=== PATIENT | female | born 1950 | race Caucasian/White ===

== ENCOUNTER → 2022-05-08 | Day surgery (SDC) | payer MEDICARE, OTHER ==
--- NOTE | 2022-05-14 08:45 | MM ---
Reason for Exam: Review of outside study. Risk Values: Kitty 5 year model risk: 1.1%. NCI Lifetime model risk: 3.5%. Tissue Density: Right: The breast tissue is heterogeneously dense. This may lower the sensitivity of mammography. Pathology Description: Location: 7 o'clock. Needle Type: Celero Cores: 2 Gauge: 12 The procedure of ultrasound guided core biopsy was explained to the patient. Benefits, alternatives, and risks were discussed. An informed consent was then obtained. The patient was placed in supine positioning for imaging and for the procedure. The overlying skin was prepped and draped in usual sterile fashion. Lidocaine was used as anesthetic into the skin followed by lidocaine/epinephrine into the subcutaneous tissue up to each area within the right breast interpreted. A total of 5 mL 1% lidocaine was utilized and a total of 20 mL lidocaine/epinephrine mixture. SITE A, dominant 7:00, 8.7 cm mass: Under ultrasound guidance, a 12-gauge vacuum assisted biopsy gun device was used to obtain 2 core samples. Following this, a Hydromark coil clip was left in lesion. SITE B, dominant 7.7 cm SUPERIOR axillary mass: Under ultrasound guidance, a 12- gauge vacuum assisted biopsy gun device was used to obtain 2 core samples. Following this, a Hydromark coil clip was left in lesion. SITE C, 4.6 cm INFERIOR axillary mass: Under ultrasound guidance, a 12-gauge vacuum assisted biopsy gun device was used to obtain 2 core samples. Following this, a Hydromark butterfly clip was left in lesion. The patient tolerated the procedure well without any immediate complication. The patient was kept in the radiology department for short stay after the procedure and then discharged home in stable condition. Postprocedure mammogram: The patient was transferred to mammography for physician ordered post procedure mammogram for clip placement verification. Post procedure mammogram shows the dominant central posteriorly located mass labeled 7:00 on ultrasound with coil clip. The 2 axillary masses are outside the field of view. Impression: Successful, uncomplicated (3 site) ultrasound guided core biopsy of the large BI-RADS 5, 7:00 right breast mass and suspicious two masses in the axilla; full pathology results to follow. Pathology Results: Result: Malignant, Invasive ductal carcinoma. A. RIGHT BREAST, SEVEN O'CLOCK, ULTRASOUND GUIDED NEEDLE CORE BIOPSY: Invasive poorly differentiated ductal carcinoma (Grade 3). See Surgical Pathology Cancer Case Summary and Comment. B. RIGHT BREAST AXILLA, ULTRASOUND GUIDED NEEDLE CORE BIOPSY: Invasive poorly differentiated ductal carcinoma (Grade 3). See Surgical Pathology Cancer Case Summary and Comment. C. RIGHT BREAST AXILLA, ULTRASOUND GUIDED NEEDLE CORE BIOPSY: Invasive poorly differentiated ductal carcinoma (Grade 3). See Surgical Pathology Cancer Case Summary and Comment. Overall Assessment: Malignant Assessment: MG diagnostic mammo RT wo CAD - Right: Known biopsy proven malignancy, BI-RAD 6. Management: Surgical Consultation of the right breast. Electronically signed and approved by: Tiffani Stovall M.D. Radiologist [facility]
== END ==
LOC: RADUSWWP 13:08
PROVIDERS: ATTEND Surgery
DX: R92.8 Other abnormal and inconclusive findings on diagnostic imaging of breast (principal); C50.311 Malignant neoplasm of lower-inner quadrant of right female breast
CPT/HCPCS: 88305; 88342; 88341; 77065; 19083; 19084; A4648

== ENCOUNTER → 2022-05-16 | Outpatient (CLI) | payer MEDICARE, OTHER ==
[2022-05-16 14:05] VITALS: BP 195/84; PULSE 100; RESP 18; TEMP 98.8
--- NOTE | 2022-05-16 14:45 | P.GSHP ---
History of Present Illness H&P Date: 05/16/22 Chief Complaint: Invasive ductal carcinoma right breast Tania is a 71-year-old white female seen in consultation for Carmen Morataya regarding a biopsy-proven right breast invasive ductal carcinoma. The patient underwent a bilateral mammogram on 192 which revealed a large focal asymmetry in the right breast inferior laterally with associated skin thickening. No lesions of concern were noted in the left breast. An ultrasound was then performed which revealed edema in the skin of the right breast as well as a solid mass at 7:00 measuring 8.7 cm x 8.4 cm. 2 enlarged axillary masses were seen one measuring 7.7 x 8 cm and the second measuring 4.6 x 3.9 cm. A biopsy of all 3 sites were performed in all 3 sites revealed invasive ductal carcinoma. The core biopsy was performed on . Additionally the lesion was noted to be grade 3 ER. Negative as well as HER-2 negative. The patient noted some redness under her right breast which she though were shingles. She was seen by MD and a mammogram was done which led to this appointment. She now states that the right breast is firm and red. She was treated with amoxicillin for 10 days. This did not result in resolution of this situation. She's never had surgery on her breasts before. She got complaining of any recent trauma or infection in the breast. She did have some chills but no fever. Caffeine: none nicotine: none chocolate: weekly BCP: none Family History: mother: breast cancer at 46 at 54 from cancer father: prostate cancer paternal aunt: breast cancer Hormonal History: menarche: 14 , age at : 29, breast fed: no menopause: 56 hormones: none Surgical history: left knee replacement Medical History: HTN Social History: nicotine: none alcohol: none drugs: none - Constitutional Constitutional: Denies chills, Denies fever - EENT Eyes: denies blurred vision, denies pain Ears: deny: decreased hearing, tinnitus Ears, nose, mouth and throat: Denies headache, Denies sore throat - Breasts Breasts: bilateral: as per HPI - Cardiovascular Cardiovascular: Denies chest pain, Denies shortness of breath - Respiratory Respiratory: Denies cough, Denies 7 - Gastrointestinal Gastrointestinal: Denies abdominal pain, Denies diarrhea, Denies nausea, Denies vomiting - Genitourinary (Female) Genitourinary: Denies dysuria, Denies hematuria - Menstruation Menstruation: Reports postmenopausal - Musculoskeletal Comment: arthritis in her hands, knees Musculoskeletal: Denies myalgias - Integumentary Integumentary: Reports as per HPI - Neurological Neurological: Denies numbness, Denies weakness - Psychiatric Psychiatric: Denies anxiety, Denies depression - Endocrine Endocrine: Denies fatigue, Denies weight change - Hematologic/Lymphatic Comment: none - Allergic/Immunologic Allergic/Immunologic: Reports as per HPI Past Medical History Past Medical History: Hypertension History of Any Multi-Drug Resistant Organisms: None Reported Additional Past Surgical History / Comment(s): Left knee replacement Additional Past Anesthesia/Blood Transfusion Reaction / Comment(s): never have had general anesthesia Past Psychological History: No Psychological Hx Reported Smoking Status: Never smoker Past Alcohol Use History: None Reported Past Drug Use History: None Reported Medications and Allergies Home Medications Medication Instructions Recorded Confirmed Type lisinopriL [Prinivil] 20 mg PO DAILY 04/25/22 05/16/22 History Ascorbic Acid [Vitamin C] 1,000 mg PO DAILY 05/16/22 05/16/22 History Calcium Carbonate [Calcium] 600 mg PO DAILY 05/16/22 05/16/22 History Multivitamin [Multivitamins Adult 1 cap PO DAILY 05/16/22 05/16/22 History Gummies] Allergies Allergy/AdvReac Type Severity Reaction Status Date / Time No Known Allergies Allergy Unverified 05/16/22 13:59 Surgical - Exam Vital Signs Temp Pulse Resp BP Pulse Ox 98.8 F 100 18 195/84 97 05/16/22 14:01 05/16/22 14:01 05/16/22 14:01 05/16/22 14:01 05/16/22 14:01 - General BMI: 46.5 no distress - Eyes normal ocular movement - ENT no hearing loss - Neck trachea midline - Respiratory normal respiratory effort, clear to auscultation - Cardiovascular Rhythm: regular Heart Sounds: normal: S1, S2 - Abdomen Abdomen: soft, non tender, no guarding, no rigid, no rebound - Integumentary thickening of skin right breast - Neurologic no disoriented, no combative - Musculoskeletal normal gait - Psychiatric oriented to time, oriented to place, memory intact Breast Exam: 3X right larger than left side Inspection: Erythema of the lower outer aspect of the right breast with extension up into the axilla, thickening of the skin and right breast is larger than the left breast Palpation: Right breast: Approximately 20 cm mass outer upper and lower quadrants which appeared to be separate from approximately 8 cm mass in the axilla these are not fixed to the chest wall Right axilla colon approximately 8 cm mass not fixed to the chest wall extending up into the axilla Left breast: Multiple positional exam fibrocystic changes no dominant masses or nodules of concern Left axilla: No adenopathy of concern Results Mammogram and ultrasound personally reviewed Assessment and Plan Assessment: Impression: HTN grade 3 tipple (-), invasive ductal cancer right breast Plan: Appointment medical oncology Appointment radiation oncology Presentation of case at tumor board PET scan Cc: Carmen Rogers
== END | disposition home or self-care (01) ==
LOC: WWCWWP 13:53
PROVIDERS: ATTEND Surgery
DX: I10 Essential (primary) hypertension (principal); C50.911 Malignant neoplasm of unspecified site of right female breast; Z79.899 Other long term (current) drug therapy

== ENCOUNTER → 2022-06-27 | Day surgery (SDC) | payer MEDICARE, OTHER ==
[2022-06-27 12:19] VITALS: TEMP 98.7
[2022-06-27 14:24] VITALS: BP 168/93; PULSE 94; RESP 18
--- NOTE | 2022-06-27 14:25 | P.HPOB ---
History of Present Illness H&P Date: 06/27/22 Chief Complaint: Abnormal hypermetabolic uptake in the central uterus by PET scan This is a 72-year-old with an LMP of 2006. The patient's last pelvic exam with Pap smear was done more than 20 years ago. The patient was sent for an endometrial biopsy following abnormal PET scan findings. She had an abnormal mammogram on 04/23/2022 which showed a large right breast mass which was suspicious. Breast biopsy revealed right breast cancer. PET scan was performed which showed the large breast mass and an abnormal hypermetabolic uptake in the central uterus which was concerning for endometrial cancer or other neoplasm within the uterus. The patient is without gynecologic complaints and denies any postmenopausal bleeding. The patient is seen Dr. Hossein Clement for the breast cancer and has seen Dr. Rubin Barclay for the possibility of gynecologic malignancy. Dr. Barclay has requested for me to do an endometrial biopsy because of the abnormal PET scan finding. Review of Systems The patient's weight has been stable over the last year. She denies respiratory, cardiac, or G.I. problems. Past Medical History Past Medical History: Cancer, Hypertension, Osteoarthritis (OA), Skin Disorder Additional Past Medical History / Comment(s): new dx. right breast cancer, drsg. over area where biopsy was done-has been draining-Dr. Catalan-Urbano evaluated. 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 Inadequate cervical screening. History of Any Multi-Drug Resistant Organisms: None Reported Past Surgical History: Breast Surgery, Joint Replacement, Orthopedic Surgery Additional Past Surgical History / Comment(s): arthroscopy left knee, Left knee replacement, bx to right breast Past Anesthesia/Blood Transfusion Reactions: No Reported Reaction Additional Past Anesthesia/Blood Transfusion Reaction / Comment(s): never have had general anesthesia Past Psychological History: No Psychological Hx Reported (She denies current depression.) Smoking Status: Never smoker Past Alcohol Use History: None Reported Past Drug Use History: None Reported Additional History: She has been since 1979. - Past Family History Mother Family Medical History: Cancer Additional Family Medical History / Comment(s): breast Father Family Medical History: Cancer Additional Family Medical History / Comment(s): Metastatic Prostate cancer. Medications and Allergies Home Medications Medication Instructions Recorded Confirmed Type lisinopriL [Prinivil] 40 mg PO DAILY 04/25/22 06/27/22 History Ascorbic Acid [Vitamin C] 1,000 mg PO DAILY 05/16/22 06/27/22 History Calcium Carbonate [Calcium] 600 mg PO DAILY 05/16/22 06/27/22 History Multivitamin [Multivitamins Adult 1 cap PO DAILY 05/16/22 06/27/22 History Gummies] Mv-Mn/Om3/Dha/Epa/Fish/Lut/Mil 1 tab PO DAILY 06/21/22 06/27/22 History [Ocuvite Adult 50 Plus Softgel] Allergies Allergy/AdvReac Type Severity Reaction Status Date / Time No Known Allergies Allergy Verified 06/27/22 12:15 Exam Vital Signs Temp Pulse Resp BP Pulse Ox 06/27/22 12:16 98.7 F 92 17 167/85 98 Intake and Output 06/26/22 06/27/22 06/27/22 22:59 06:59 14:59 Other: Weight 136.078 kg Height 5 feet 7 inches, weight 300 pounds, BMI 47.0. This is a well-developed well-nourished pleasant obese white female who is alert and oriented times 3 in no acute distress. Physical examination was limited as she was sent specifically for the endometrial biopsy procedure. ABDOMEN: Soft, obese, nontender, without palpable masses. PELVIC EXAM: Normal external genitalia with mild atrophy. Cervix revealed an endocervical mass measuring approximately 1 x 1 cm that was at the opening of the cervix. The mass had a meat like color that was darker than the surrounding mucosa. The cervix appeared 1 cm dilated with the mass at the opening. The rest of the cervix appeared normal without lesions. The vagina was normal appearance with mild atrophy. There is no unusual discharge or blood at the initial inspection. There is no evidence of prolapse. The uterus is midpositi on, multiparous, nongravid size and nontender. There are no palpable adnexal masses or tenderness. Bimanual examination is somewhat limited secondary to her size. Endometrial biopsy was attempted, but the endometrial biopsy instrument could not be placed beyond the cervical mass and this attempt was aborted. Biopsy of the mass was performed with a cervical biopsy instrument. See procedure note for additional details. IMPRESSION: 1. 72-year-old menopausal female with recent diagnosis of right breast cancer with PET scan showing abnormal hypermetabolic uptake in the central uterus without postmenopausal bleeding. 2. Endocervical mass measuring approximately 1 x 1 cm. Differential diagnosis will include benign endocervical polypoid mass, pedunculated prolapsed endometrial tissue, pedunculated uterine fibroid, pedunculated endometrial polyp, or metastatic neoplasm of the uterus. Malignant or benign neoplasm will both be considered. This may or may not represent findings associated with the abnormal uptake in the uterus on PET scan. PLAN: 1. Pap smear cotest was performed. 2. Await pathology from the cervical mass biopsy. 3. The patient was instructed to call if she has problems such as heavy bleeding, unusual pain, fever, or other problems. She was instructed to limit activity to simple walking and she is to avoid putting anything into the vagina. 4. If the biopsy of the mass does not explain the unusual uptake on PET scan, further workup may be needed such as D&C.
--- NOTE | 2022-06-27 14:36 | P.PCN ---
Date of Procedure: 06/27/22 Preoperative Diagnosis: Abnormal hypermetabolic uptake in the central uterus on PET scan. Postoperative Diagnosis: Same plus endocervical mass of uncertain behavior. Procedure(s) Performed: Attempted endometrial biopsy (aborted) and biopsy of endocervical mass. Anesthesia: none Surgeon: Rufino Padilla Estimated Blood Loss (ml): 2 Pathology: other (Endocervical biopsy) Condition: stable Disposition: same day Indications for Procedure: This was a 80-year-old menopausal female who was recently diagnosed with right breast cancer. PET scan was done on 05/18/2022 which showed an abnormal hypermetabolic uptake in the central uterus. I have been asked to do an endometrial biopsy because of this PET scan finding. She denies postmenopausal bleeding. See the history and physical for additional details. Operative Findings: The uterus was mid positioned, multiparous, nongravid size without palpable adnexal masses or or tenderness. Bimanual examination was limited because of her size. The cervix revealed an endocervical mass measuring impression a 1 x 1 cm that approached the cervical opening. The mass had a meat like color which was darker than the surrounding cervical tissue and vaginal mucosa. Description of Procedure: The procedure was explained to the patient. Possible risks and complications were discussed. All questions were answered. The patient was placed in the lithotomy position. Bimanual examination was performed. The uterus was multiparous nongravid size and nontender. There are no palpable adnexal masses or tenderness. Bimanual examination was somewhat limited secondary to her size. A speculum was inserted into the vagina. Pap smear cotest was performed. The cervix and vagina were prepped with Betadine solution. The anterior lip of the cervix was grasped with an Allis clamp. A 3 mm endometrial biopsy instrument was used and I was unable to pass the instrument beyond the endocervical mass. The Allis clamp was used to grasp in various areas of the cervix, but I was unable to pass the endometrial biopsy instrument beyond the outer part of the cervix. I attempted to pass the instrument at every point around the mass without success. After several attempts the endometrial biopsy procedure was aborted as to avoid using excessive pressure which could lead to perforation. The the endocervical mass was then biopsied with a cervical biopsy instrument. There was some bleeding from the biopsy site which was made hemostatic with Monsel solution. The patient tolerated the procedure and endometrial biopsy attempt well. The post procedure blood pressure was 168/93, pulse 94 and the pulse oximeter 99%. The patient was instructed to call if she has unusual pain, fever, heavy bleeding, or any other problems. Please see the history and physical for additional details on the impression and plan.
== END ==
LOC: WWCWWP 11:38
PROVIDERS: ATTEND Obstetrics & Gynecology
DX: Z53.8 Procedure and treatment not carried out for other reasons (principal); N84.1 Polyp of cervix uteri; I10 Essential (primary) hypertension; M19.90 Unspecified osteoarthritis, unspecified site; Z78.0 Asymptomatic menopausal state; Z85.3 Personal history of malignant neoplasm of breast; Z96.652 Presence of left artificial knee joint; Z79.899 Other long term (current) drug therapy
CPT/HCPCS: 88305

== ENCOUNTER → 2022-08-23 | Outpatient (CLI) | payer MEDICARE, OTHER ==
[2022-08-23 15:49] VITALS: BP 169/78; PULSE 90; RESP 18; TEMP 98.3
--- NOTE | 2022-08-23 16:05 | P.PN ---
Subjective Progress Note Date: 08/23/22 History of Present Illness H&P Date: 05/16/22 Chief Complaint: Invasive ductal carcinoma right breast; [id number] Stage IIIC Tania is a 71-year-old white female seen in consultation for Carmen Morataya regarding a biopsy-proven right breast invasive ductal carcinoma. The patient underwent a bilateral mammogram on 1922 which revealed a large focal asymmetry in the right breast inferior laterally with associated skin t hickening. No lesions of concern were noted in the left breast. An ultrasound was then performed which revealed edema in the skin of the right breast as well as a solid mass at 7:00 measuring 8.7 cm x 8.4 cm. 2 enlarged axillary masses were seen one measuring 7.7 x 8 cm and the second measuring 4.6 x 3.9 cm. A biopsy of all 3 sites were performed in all 3 sites revealed invasive ductal carcinoma. The core biopsy was performed on 120 423. Additionally the lesion was noted to be grade 3 ER. Negative as well as HER-2 negative. The patient noted some redness under her right breast which she though were shingles. She was seen by MD and a mammogram was done which led to this appointment. She now states that the right breast is firm and red. She was treated with amoxicillin for 10 days. This did not result in resolution of this situation. She's never had surgery on her breasts before. She got complaining of any recent trauma or infection in the breast. She did have some chills but no fever. PET scan 3 abnormal right axillary adenopathy, no right breast mass, abnormal hypermetabolic uptake in the central uterus which was worrisome for primary endometrial cancer The patient was seen by Dr. Barclay and has had some workup by Dr. Padilla. At this point in time we feel that the breast lesion should be treated prior to the uterine lesion She is receiving neoadjuvant chemotherapy under the care of Dr. Douglas Ortez; she has about 4 more months of treatment prior to condiseration for surgery; she is receiving good response to this. She did [place] [id number] and has been treated with our course Note form Dr. Ortez 08-15-22 reviewed Caffeine: none nicotine: none chocolate: weekly BCP: none Family History: mother: breast cancer at 46 at 54 from cancer father: prostate cancer paternal aunt: breast cancer Hormonal History: menarche: 14 , age at : 29, breast fed: no menopause: 56 hormones: none Surgical history: left knee replacement Medical History: HTN Social History: nicotine: none alcohol: none drugs: none - Constitutional Constitutional: Denies chills, Denies fever - EENT Eyes: denies blurred vision, denies pain Ears: deny: decreased hearing, tinnitus Ears, nose, mouth and throat: Denies headache, Denies sore throat - Breasts Breasts: bilateral: as per HPI - Cardiovascular Cardiovascular: Denies chest pain, Denies shortness of breath - Respiratory Respiratory: Denies cough - Gastrointestinal Gastrointestinal: Denies abdominal pain, Denies diarrhea, Denies nausea, Denies vomiting - Genitourinary (Female) Genitourinary: Denies dysuria, Denies hematuria - Menstruation Menstruation: Reports postmenopausal - Musculoskeletal Comment: arthritis in her hands, knees Musculoskeletal: Denies myalgias - Integumentary Integumentary: Reports as per HPI - Neurological Neurological: Denies numbness, Denies weakness - Psychiatric Psychiatric: Denies anxiety, Denies depression - Endocrine Endocrine: Denies fatigue, Denies weight change - Hematologic/Lymphatic Comment: none - Allergic/Immunologic Allergic/Immunologic: Reports as per HPI Past Medical History Past Medical History: Hypertension History of Any Multi-Drug Resistant Organisms: None Reported Additional Past Surgical History / Comment(s): Left knee replacement Additional Past Anesthesia/Blood Transfusion Reaction / Comment(s): never have had general anesthesia Past Psychological History: No Psychological Hx Reported Smoking Status: Never smoker Past Alcohol Use History: None Reported Past Drug Use History: None Reported Medications and Allergies Home Medications Medication Instructions Recorded Confirmed Type lisinopriL [Prinivil] 20 mg PO DAILY 04/25/22 05/16/22 History Ascorbic Acid [Vitamin C] 1,000 mg PO DAILY 05/16/22 05/16/22 History Calcium Carbonate [Calcium] 600 mg PO DAILY 05/16/22 05/16/22 History Multivitamin [Multivitamins Adult 1 cap PO DAILY 05/16/22 05/16/22 History Gummies] Allergies Allergy/AdvReac Type Severity Reaction Status Date / Time No Known Allergies Allergy Unverified 05/16/22 13:59 Objective - Vital Signs Vital signs: Vital Signs Temp 98.3 F 08/23/22 15:45 Pulse 90 08/23/22 15:45 Resp 18 08/23/22 15:45 BP 169/78 08/23/22 15:45 Pulse Ox 100 08/23/22 15:45 FiO2 Intake & Output 08/22/22 08/23/22 08/23/22 18:59 06:59 18:59 Weight 137.892 kg - Constitutional General appearance: Present: cooperative - EENT Eyes: Present: EOMI ENT: Present: hearing grossly normal - Neck Neck: Present: normal ROM - Respiratory Respiratory: bilateral: CTA - Cardiovascular Rhythm: regular Heart sounds: normal: S1, S2 - Gastrointestinal General gastrointestinal: Present: soft - Integumentary Integumentary: Present: normal turgor - Musculoskeletal Musculoskeletal: Present: gait normal - Psychiatric Psychiatric: Present: A&O x's 3, appropriate affect, intact judgment & insight - Additional findings Additional findings: Breast Exam: 3X right larger than left side Inspection: Erythema of the lower outer aspect of the right breast with extension up into the axilla, markedly improved, there remains some thickening of the skin but this is improved as well Palpation: Right breast: Approximately 20 cm mass outer upper and lower quadrants which appeared to be separate from approximately 8 cm mass in the axilla these are not fixed to the chest wall; these masses the 20 cm mass May centimeter mass have largely resolved Right axilla: The area of concern in the right axilla has largely resolvedof the adenopathy of concern is appreciated on today's exam Left breast: Multiple positional exam fibrocystic changes no dominant masses or nodules of concern Left axilla: No adenopathy of concern Assessment and Plan Assessment: Impression: Invasive ductal carcinoma right breast; [id number] Stage IIIC Patient responding well to neoadjuvant chemotherapy Plan: Follow appearing 2 months Continue neoadjuvant chemotherapy Cc: Dr. Morataya
== END ==
LOC: WWCWWP 14:57
PROVIDERS: ATTEND Surgery
DX: D05.11 Intraductal carcinoma in situ of right breast (principal); I10 Essential (primary) hypertension; Z79.899 Other long term (current) drug therapy; Z80.3 Family history of malignant neoplasm of breast

== ENCOUNTER → 2022-08-28 | Day surgery (SDC) | payer MEDICARE, OTHER ==
[2022-08-27 15:02] VITALS: BMI 48.2
[~2022-08-28] MED LIST: IOPAMIDOL-370 100ML BTL INJ ONE
[2022-08-28 08:10] VITALS: PULSE 86; RESP 18; TEMP 98.2
[2022-08-28 08:26] VITALS: BP 174/60
--- NOTE | 2022-08-28 09:55 | IR ---
Fluoroscopic portogram([facility]). HISTORY: Device malfunction. The patient presented to the [facility] with a Cobb needle within the port. Preliminary fluoroscopy demonst rated the catheter to be intact. Normal exam. 0.4 minutes of fluoroscopy utilized. IMPRESSION: 1. No obstruction or extravasation. See above.
== END ==
LOC: CATHCVL 07:38
PROVIDERS: ATTEND Radiology Diagnostic Radiology
DX: T85.618A Breakdown (mechanical) of other specified internal prosthetic devices, implants and grafts, initial encounter (principal); Y82.8 Other medical devices associated with adverse incidents; C50.511 Malignant neoplasm of lower-outer quadrant of right female breast; I10 Essential (primary) hypertension; Z79.01 Long term (current) use of anticoagulants; Z79.899 Other long term (current) drug therapy
CPT/HCPCS: 36598; J1642; Q9967

== ENCOUNTER 2023-01-08 11:46 | Day surgery (SDC) | payer MEDICARE, OTHER ==
[~2023-01-08 11:46] MED LIST changes: +DEXAMETHASONE SOD PHOSPHATE 4 MG/ML 1 ML VIAL IV ONE; +HEPARIN SODIUM,PORCINE/PF 5,000 UNIT/0.5 ML SYRINGE SQ PRN; +HYDROmorphone 0.5 MG/0.5 ML SYRINGE IVP PRN; -IOPAMIDOL-370 100ML BTL INJ ONE; +MIDAZOLAM 2 MG/2 ML VIAL IV PRN; +ONDANSETRON 4 MG/2 ML VIAL IVP ONE; +ceFAZolin 3 GM in SODIUM CHLORIDE 0.9% 100 ML IVPB PRN
[2023-01-08] MEDS ORDERED: LACTATED RINGERS 1,000 ML IV ONE ×2 (12:50→18:05)
[2023-01-08] MEDS ORDERED: LIDOCAINE 1% INJ 10MG/ML (20 ML MDV) SQ ONE (14:21)
--- NOTE | 2023-01-08 16:03 | P.NAPBC ---
NAPBC Queries - NAPBC Queries Was patient's case review presented at [facility] tumor board? If no, comment.: Yes Was patient's pathology reviewed at [facility]? If no, comment.: Yes Was breast conservation surgery offered? If no, comment.: No Was sentinel node biopsy offered? If no, comment.: No (axillary node disection to be done) Was diagnosis confirmed by percutaneous core biopsy? If no, comment.: Yes Is patient mastectomy patient?: Yes Was a preop referral to reconstructive surgeon offered?: Yes Clinical Stage: right breast [id number] Stage III invasive ductal cancer
[2023-01-08] MEDS ORDERED: ePHEDrine 50 MG/ML 1 ML VIAL ONE (16:29)
[2023-01-08] MEDS ORDERED: LIDOCAINE 2% INJ 20 MG/ML (2 ML VIAL) ONE (16:29)
[2023-01-08] MEDS ORDERED: PROPOFOL 10 MG/ML 20 ML VIAL IV ONE (16:29)
[2023-01-08] MEDS ORDERED: MIDAZOLAM 2 MG/2 ML VIAL ONE (16:29)
[2023-01-08] MEDS ORDERED: fentaNYL (PF) 50 MCG/ML 2 ML AMP ONE (16:29)
[2023-01-08] MEDS ORDERED: METHYLENE BLUE 50 MG/10 ML AMPUL MISCELLANE ONE (16:47)
[2023-01-08] MEDS ORDERED: HYDROcodone/APAP 5-325MG 1 EACH TAB PO PRN (18:57)
[2023-01-08] MEDS ORDERED: ONDANSETRON 4 MG/2 ML VIAL IVP PRN (18:57)
[2023-01-08] MEDS ORDERED: HYDROmorphone 1 MG/ML 1 ML SYRINGE IVP PRN (18:57)
[2023-01-08] MEDS ORDERED: NALOXONE 0.4 MG/ML 1 ML VIAL IV PRN (18:57)
--- NOTE | 2023-01-08 18:57 | P.OP ---
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 Postoperative Diagnosis: Same Procedure(s) Performed: Mastectomy with axillary node dissection, axillary node mapping Anesthesia: TO Surgeon: Lidia Live Estimated Blood Loss (ml): 50 IV fluids (ml): 1,000 Pathology: other (Right breast and axillary contents) Condition: stable Disposition: floor Indications for Procedure: Right breast invasive ductal carcinoma status post neoadjuvant chemotherapy Operative Findings: Necrotic tumor, large axillary lymph nodes Description of Procedure: Patient is a 72-year-old white female status post neoadjuvant chemotherapy for stage III invasive ductal carcinoma the right breast. She was seen initially admitted radiology department where needle localization of 2 lymph nodes was performed. She was then brought to the operative suite. Following induction of anesthesia the neoprobe was used to determine whether radiotracer which had been injected preoperatively had traveled to the axilla. It was not detected. 6 mL of 50% methylene blue was injected in the breast was massaged for approximately 5 minutes. Following this the right breast and axilla were prepped and draped in a sterile fashion. Marking lines were placed for superior and inferior skin flaps. The superior skin flap was developed. The inferior skin flap was then developed. Hemostasis was attained using electrocautery device. The breast was taken from medial to lateral making sure to maintain hemostasis using electrocautery device. The LigaSure was used as needed as well as suture ligation of any vessels of concern. As we approached the axilla the area of the pectoralis major muscle lateral border was identified. This was dissected to the pectoralis minor muscle. The muscle was followed superiorly to the area of the axillary vein. The axillary vein was identified. The axillary tissues were swept inferiorly being careful to maintain hemostasis using the electrocautery device and harmonic scalpel. The lymph nodes which had been localized were within the specimen. The area of the thoracodorsal and long thoracic nerves were in the vicinity of the tumor and possibly included in the area of the tumor. Dissection was carefully performed down into the inferior aspect of the axilla. The specimen was removed. The specimen was sent to radiology for confirmation that the lymph nodes which had been marked preoperatively removed was obtained. The specimen was marked with a short suture superior and a long suture lateral. Several intercostal brachial nerves were necessary to be taken secondary to the tumor. The wound was well irrigated. After we were assured that hemostasis was attained Surgicel in powder form was placed. 2 RACHEAL drains were placed. These were secured using nylon suture. The deep tissues were closed using 3-0 Vicryl suture. The subcuticular tissue was closed using 4-0 Monocryl. Surgical glue was placed. The patient tolerated the procedure in stable condition. All instrument and sponge counts were correct at the end of the case.
[2023-01-08] MEDS: HEPARIN SODIUM,PORCINE 5,000 UNIT/ML 1 ML VIAL SQ SCH (21:03)
[2023-01-08] MEDS: SODIUM CHLORIDE 0.9% 1,000 ML IV SCH (23:04)
[2023-01-08] MEDS: LACTATED RINGERS 1,000 ML IV SCH (23:10)
[2023-01-09 05:21] LABS: Basophils % (A) 0 %; Eosinophils # (A) 0.1 k/uL (0-0.7); Eosinophils % (A) 1 %; HCT 33.9 % (34.0-46.0); HGB 11.5 gm/dL (11.4-16.0); Lymphocytes # (A) 0.7 k/uL (1.0-4.8); Lymphocytes % (A) 7 %; MCH 33.6 pg (25.0-35.0); MCHC 33.9 g/dL (31.0-37.0); MCV 99.2 fL (80.0-100.0); Mean Platelet Volume 9.2; Monocytes # (A) 0.5 k/uL (0-1.0); Monocytes % (A) 5 %; Neutrophils # (A) 8.8 k/uL (1.3-7.7); Neutrophils % (A) 86 %; Platelet Count 151 k/uL (150-450); RBC 3.42 m/uL (3.80-5.40); RDW 13.8 % (11.5-15.5); WBC 10.2 k/uL (3.8-10.6)
[2023-01-09] MEDS: SODIUM CHLORIDE 0.9% 1,000 ML IV SCH ×2 (05:50→20:24)
[2023-01-09] MEDS: HEPARIN SODIUM,PORCINE 5,000 UNIT/ML 1 ML VIAL SQ SCH ×2 (09:45→20:22)
[2023-01-09] MEDS: LACTATED RINGERS 1,000 ML IV SCH (09:53)
--- NOTE | 2023-01-09 10:47 | P.PN ---
Subjective Progress Note Date: 01/09/23 Principal diagnosis: Postop day #1 right mastectomy and axillary node dissection Tania is a 72-year-old white female postop day #1 right mastectomy and axillary node dissection. Postoperatively she is doing well. Hemoglobin 11.5, white count 10.2. She has [address] 1 is putting out 87 mL of serous fluid is in the axillary region and the other has minimal output. Objective - Vital Signs Vital signs: Vital Signs Temp 98.9 F 01/09/23 07:47 Pulse 67 01/09/23 07:47 Resp 16 01/09/23 07:47 BP 148/82 01/09/23 07:47 Pulse Ox 98 01/09/23 07:47 FiO2 Intake & Output 01/08/23 01/09/23 01/09/23 18:59 06:59 18:59 Intake Total 1300 1280 Output Total 50 87 40 Balance 1250 1193 -40 Weight 123.7 kg 123.7 kg Intake: IV 1300 200 Oral 1080 Output: Drainage 87 40 Right Anterior 0 5 Right Anterior Chest 87 35 Estimated Blood Loss 50 Other: Voiding Method Toilet # Voids 1 1 - Constitutional General appearance: Present: cooperative - EENT Eyes: Present: EOMI ENT: Present: hearing grossly normal - Neck Neck: Present: normal ROM - Respiratory Respiratory: bilateral: CTA - Cardiovascular Heart sounds: normal: S1, S2 - Integumentary Integumentary Comment(s): Incision clean and dry, dressing changed - Psychiatric Psychiatric: Present: A&O x's 3, appropriate affect, intact judgment & insight - Labs CBC & Chem 7: 01/09/23 04:49 01/08/23 13:33 Labs: Abnormal Lab Results - Last 24 Hours (Table) 01/09/23 Range/Units 04:49 RBC 3.42 L (3.80-5.40) m/uL Hct 33.9 L (34.0-46.0) % Neutrophils # 8.8 H (1.3-7.7) k/uL Lymphocytes # 0.7 L (1.0-4.8) k/uL Assessment and Plan Assessment: Impression: Patient doing well postoperative Plan: Probable discharge home tomorrow Patient is going to be evaluated by medicine have discussed her case with Dr. Vernon
[2023-01-09] MEDS ORDERED: MULTIVITAMINS, THERA 1 EACH TAB PO SCH (11:00)
[2023-01-09] MEDS ORDERED: lisinopriL 20 MG TAB PO SCH (11:00)
[2023-01-09] MEDS ORDERED: amLODIPine 5 MG TAB PO SCH (11:00)
[2023-01-09 12:11] LABS: African American GFR (CKD) 59 (>60 ml/min/1.73 sqM); Anion Gap 9 mmol/L; Blood Urea Nitrogen 10 mg/dL (7-17); Calcium 9.8 mg/dL (8.4-10.2); Carbon Dioxide 18 mmol/L (22-30); Chloride 113 mmol/L (98-107); Glucose 102 mg/dL (74-99); Non-African American GFR(CKD) 51 (>60 ml/min/1.73 sqM); Potassium 3.8 mmol/L (3.5-5.1); Sodium 140 mmol/L (137-145)
[2023-01-09] MEDS: LEVOTHYROXINE 100 MCG TAB PO SCH (14:17)
--- NOTE | 2023-01-09 20:46 | P.CONS ---
History of Present Illness - Reason for Consult Consult date: 01/09/23 Medical management Requesting physician: Lidia Live - Chief Complaint Breast surgery - History of Present Illness This is a pleasant 72-year-old patient, follows Dr. Zak Hendrickson. Chronic stable medical conditions include DVT for which patient eliquis, essential hypertension, osteomyelitis, hypothyroid. DVT diagnosed in July of this year. Patient is following with oncologist Dr. Dinero. Diagnosed with right breast invasive ductal carcinoma. Patient has received new agent underwent chemotherapy. Stage III. Underwent mastectomy with axillary node dissection on the right side. Has [address] Some pain at the operative site. Review of systems: GEN.: None EYES: None HEENT: None NECK: None RESPIRATORY: None CARDIOVASCULAR: None GASTROINTESTINAL: None GENITOURINARY: None MUSCULOSKELETAL: None LYMPHATICS: None HEMATOLOGICAL: None PSYCHIATRY: None NEUROLOGICAL: None Past medical history to include: Right breast cancer with chemotherapy, DVT in July 2022, hypertension, osteoporosis, hypothyroid Social history: No smoking or alcohol. Physical examination: VITAL SIGNS: 98.8, 71, 18, 147/76, 98% room air GENERAL: BMI 42.7, declining but awake not in distress. EYES: [Pupils equal. Conjunctiva renata]l. HEENT: [External appearance of nose and ears normal, oral cavity grossly normal]. NECK: [JVD unable to assess; masses not palpable]. HEART: [First and second heart sounds are normal; no edema]. LUNGS:[ Respiratory rate normal; clear to auscultation]. ABDOMEN: [Soft, nontender, liver spleen not palpable, no masses palpable]. PSYCH: [Alert and oriented x3; mood and affect renata]l. MUSCULOSKELETAL:No Clubbing/cyanosis;muscles-grossly intact NEUROLOGICAL: [Cranial nerves grossly intact; no facial asymmetry, power and sensation grossly intact]. LYMPHATICS: [No lymph nodes palpable in the axilla and neck] CHEST: Dressing over the right breast. RACHEAL drain. INVESTIGATIONS, reviewed in the clinical context: White count 10.2 hemoglobin 11.5 platelets 151 sodium 140 potassium 3.8 creatinine 1.1 Assessment and plan: -Right mastectomy with axillary node dissection, axillary node mapping. EBL 50 mL -Right breast invasive ductal carcinoma status post new adjuvant node chemotherapy. Follows with Dr. Dinero. -Morbid obesity BMI 42.7 Outpatient weight loss measures -Essential hypertension Prinivil 40 mg daily. Amlodipine 5 mg a day. -Hypothyroid Synthroid 100 g a day -Lower extremity DVT July 2022. Eliquis currently on hold. Resume when okay with Dr. Britton wilson. Care was discussed the patient. Questions answered. Repeat labs in the morning. Thank you Dr. Britton Roberts Past Medical History Past Medical History: Cancer, Deep Vein Thrombosis (DVT), Hypertension, Osteoarthritis (OA), Thyroid Disorder Additional Past Medical History / Comment(s): POTASSIUM 2.8 AT PCP. ADDITIONAL K+ MED GIVEN. LAST LEVLE 3.4, REDRAW ON 01/04/23. new dx. right breast cancer (LAST DOSE OF CHEM 11/14/22). NO RADIATION. DVT LEFT LEG 07/25/22 History of Any Multi-Drug Resistant Organisms: None Reported Past Surgical History: Breast Surgery, Joint Replacement, Orthopedic Surgery Additional Past Surgical History / Comment(s): Arthroscopy left knee. Left knee replacement. ULTRASOUND. Bx to right breast. SUMAYA CATH Past Anesthesia/Blood Transfusion Reactions: No Reported Reaction, Motion Sickness Additional Past Anesthesia/Blood Transfusion Reaction / Comm: never have had general anesthesia Past Psychological History: No Psychological Hx Reported Smoking Status: Never smoker Past Alcohol Use History: None Reported Past Drug Use History: None Reported - Past Family History Mother Family Medical History: Cancer Additional Family Medical History / Comment(s): breast Father Family Medical History: Cancer Additional Family Medical History / Comment(s): Metastatic Prostate cancer. Medications and Allergies Home Medications Medication Instructions Recorded Confirmed Type lisinopriL [Prinivil] 40 mg PO QAM 04/25/22 01/08/23 History Ascorbic Acid [Vitamin C] 1,000 mg PO DAILY 05/16/22 01/08/23 History Calcium Carbonate [Calcium] 600 mg PO DAILY 05/16/22 01/08/23 History Multivitamin [Multivitamins Adult 1 cap PO DAILY 05/16/22 01/08/23 History Gummies] Mv-Mn/Om3/Dha/Epa/Fish/Lut/Mil 1 tab PO DAILY 06/21/22 01/08/23 History [Ocuvite Adult 50 Plus Softgel] Apixaban [Eliquis] 5 mg PO BID 08/23/22 01/08/23 History Lidocaine 2% Gel [Xylocaine Jelly 1 applic TOPICAL DAILY PRN 08/23/22 01/08/23 History 2%] amLODIPine BESYLATE [Amlodipine 5 mg PO QAM 08/23/22 01/08/23 History Besylate] Levothyroxine Sodium [Synthroid] 100 mcg PO QAM 01/03/23 01/08/23 History Potassium Chloride [Klor-Con M20] 40 meq PO DAILY 01/03/23 01/08/23 History Allergies Allergy/AdvReac Type Severity Reaction Status Date / Time No Known Allergies Allergy Verified 01/08/23 12:45 Physical Exam Vitals: Vital Signs Temp Pulse Pulse Resp BP BP BP 01/09/23 07:47 98.9 F 67 16 148/82 01/09/23 00:15 98.0 F 57 L 17 143/82 01/08/23 23:15 98.0 F 57 L 17 146/82 01/08/23 22:15 98.3 F 58 L 17 155/87 01/08/23 21:45 98.3 F 57 L 17 157/85 01/08/23 21:15 98.5 F 60 18 162/92 01/08/23 21:00 98.5 F 57 L 18 163/88 01/08/23 20:45 98.5 F 56 L 18 170/87 01/08/23 20:30 98.5 F 61 18 172/94 01/08/23 20:00 98.3 F 01/08/23 19:55 67 18 178/82 01/08/23 19:40 62 20 177/72 01/08/23 19:25 66 20 187/84 01/08/23 19:09 97.2 F L 71 14 181/78 01/08/23 14:38 98.1 F 60 16 170/77 01/08/23 14:04 98.1 F 71 16 176/76 01/08/23 13:20 164/99 01/08/23 12:15 97 F L 71 16 180/81 Pulse Ox 01/09/23 07:47 98 01/09/23 00:15 99 01/08/23 23:15 99 01/08/23 22:15 99 01/08/23 21:45 98 01/08/23 21:15 98 01/08/23 21:00 99 01/08/23 20:45 99 01/08/23 20:30 99 01/08/23 20:00 01/08/23 19:55 100 01/08/23 19:40 99 01/08/23 19:25 98 01/08/23 19:09 100 01/08/23 14:38 01/08/23 14:04 01/08/23 13:20 01/08/23 12:15 99 Intake and Output 01/08/23 01/09/23 01/09/23 22:59 06:59 14:59 Intake Total 1300 1080 Output Total 50 87 40 Balance 1250 993 -40 Intake: IV 1300 Oral 1080 Output: Drainage 87 40 Right Anterior 0 5 Right axillary 87 35 Estimated Blood Loss 50 Other: Voiding Method Toilet # Voids 1 1 Weight 123.7 kg Results CBC & Chem 7: 01/09/23 04:49 01/09/23 04:49 Labs: Abnormal Lab Results - Last 24 Hours (Table) 01/09/23 Range/Units 04:49 RBC 3.42 L (3.80-5.40) m/uL Hct 33.9 L (34.0-46.0) % Neutrophils # 8.8 H (1.3-7.7) k/uL Lymphocytes # 0.7 L (1.0-4.8) k/uL
[2023-01-10] MEDS: SODIUM CHLORIDE 0.9% 1,000 ML IV SCH (03:06)
[2023-01-10] MEDS: LEVOTHYROXINE 100 MCG TAB PO SCH (05:42)
[2023-01-10 06:25] LABS: Basophils % (A) 0 %; Eosinophils % (A) 0 %; HGB 10.1 gm/dL (11.4-16.0); Lymphocytes # (A) 0.6 k/uL (1.0-4.8); Lymphocytes % (A) 12 %; MCH 32.9 pg (25.0-35.0); MCHC 32.5 g/dL (31.0-37.0); Mean Platelet Volume 7.9; Monocytes # (A) 0.3 k/uL (0-1.0); Monocytes % (A) 7 %; Neutrophils # (A) 3.9 k/uL (1.3-7.7); Neutrophils % (A) 80 %; Platelet Count 128 k/uL (150-450); RBC 3.07 m/uL (3.80-5.40); RDW 13.5 % (11.5-15.5); WBC 4.8 k/uL (3.8-10.6)
--- NOTE | 2023-01-10 08:30 | P.PN ---
Subjective Progress Note Date: 01/10/23 Principal diagnosis: Postop day #2 right mastectomy and axillary node dissection Tania is a 72-year-old white female postop day #2 right mastectomy and axillary node dissection. Postoperatively she is doing well. Hemoglobin 11.5, white count 10.2. She has [address], serous output bilaterally. Objective - Vital Signs Vital signs: Vital Signs Temp 98.6 F 01/10/23 02:17 Pulse 67 01/10/23 02:17 Resp 15 01/10/23 02:17 BP 152/74 01/10/23 02:17 Pulse Ox 99 01/10/23 02:17 FiO2 Intake & Output 01/09/23 01/10/23 01/10/23 18:59 06:59 18:59 Intake Total 200 Output Total 105 200 Balance 95 -200 Intake: Oral 200 Output: Drainage 105 200 Right Anterior 30 75 Right axillary 75 125 Other: Voiding Method Toilet Toilet # Voids 1 - Constitutional General appearance: Present: cooperative - EENT Eyes: Present: EOMI ENT: Present: hearing grossly normal - Neck Neck: Present: normal ROM - Respiratory Respiratory: bilateral: CTA - Cardiovascular Heart sounds: normal: S1, S2 - Integumentary Integumentary Comment(s): Incision clean and dry RACHEAL output serous from both drains greater from the drain under the mastectomy flaps at this time Integumentary: Present: normal turgor - Musculoskeletal Musculoskeletal: Present: gait normal - Labs CBC & Chem 7: 01/10/23 05:51 01/09/23 04:49 Labs: Abnormal Lab Results - Last 24 Hours (Table) 01/09/23 01/10/23 Range/Units 04:49 05:51 RBC 3.07 L (3.80-5.40) m/uL Hgb 10.1 L (11.4-16.0) gm/dL Hct 31.0 L (34.0-46.0) % MCV 101.0 H (80.0-100.0) fL Plt Count 128 L (150-450) k/uL Lymphocytes # 0.6 L (1.0-4.8) k/uL Chloride 113 H (98-107) mmol/L Carbon Dioxide 18 L (22-30) mmol/L Creatinine 1.10 H (0.52-1.04) mg/dL Glucose 102 H (74-99) mg/dL Assessment and Plan Assessment: Impression: Patient doing well postoperative; dressing changed Plan: discharge home Follow up Dr. Catalan 1 week Teach patient drain care
[2023-01-10] MEDS ORDERED: ASCORBIC ACID 500 MG TAB PO SCH (09:00)
[2023-01-10 10:13] VITALS: BP 127/87; TEMP 99.1
[2023-01-10 10:38] LABS: African American GFR (CKD) 59 (>60 ml/min/1.73 sqM); Anion Gap 8 mmol/L; Blood Urea Nitrogen 12 mg/dL (7-17); Calcium 9.2 mg/dL (8.4-10.2); Carbon Dioxide 17 mmol/L (22-30); Chloride 114 mmol/L (98-107); Glucose 97 mg/dL (74-99); Non-African American GFR(CKD) 51 (>60 ml/min/1.73 sqM); Potassium 3.3 mmol/L (3.5-5.1); Sodium 139 mmol/L (137-145)
[2023-01-10] MEDS ORDERED: POTASSIUM CHLORIDE ER 20 MEQ TAB.ER PO STA (10:42)
[2023-01-10 11:15] VITALS: PULSE 58; RESP 16
--- NOTE | 2023-01-10 16:41 | NM ---
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 The benefits, alternatives, and risks were discussed. An informed consent was then obtained. Overlying skin is cleaned with sterile alcohol. Following this, 468 uCi Tc99m Tilmanocept was inject ed in the upper outer aspect of the right nipple intradermally. The patient tolerated the procedure well without any immediate complication. The patient was kept in the radiology department for short stay after the procedure and then taken to surgery for surgical p rocedure what is presumed intraoperative gamma probe will be used for sentinel lymph node detection. IMPRESSION: Right breast radiotracer injection for sentinel node localization as above.
--- NOTE | 2023-01-10 21:54 | P.PN ---
Progress Note - Text Progress Note Date: 01/10/23 - Chief Complaint Breast surgery - History of Present Illness This is a pleasant 72-year-old patient, follows Dr. Zak Hendrickson. Chronic stable medical conditions include DVT for which patient eliquis, essential hypertension, osteomyelitis, hypothyroid. DVT diagnosed in July of this year. Patient is following with oncologist Dr. Dinero. Diagnosed with right breast invasive ductal carcinoma. Patient has received new agent underwent chem otherapy. Stage III. Underwent mastectomy with axillary node dissection on the right side. Has [address]. Some pain at the operative site. January 10: Feeling better. Some pain. Controlled. RACHEAL drain in place. No nausea vomiting. Did tolerate breakfast. Cleared by surgery for discharge. Care was discussed with the patient. Questions answered. Medications reviewed Past medical history to include: Right breast cancer with chemotherapy, DVT in July 2022, hypertension, osteoporosis, hypothyroid Social history: No smoking or alcohol. Physical examination: VITAL SIGNS: 99.1, 67, 18, 127/87, 98% room air GENERAL: BMI 42.7, up in a chair, comfortable EYES: [Pupils equal. Conjunctiva renata]l. HEENT: [External appearance of nose and ears normal, oral cavity grossly renata l]. NECK: [JVD unable to assess; masses not palpable]. HEART: [First and second heart sounds are normal; no edema]. LUNGS:[ Respiratory rate normal; clear to auscultation]. ABDOMEN: [Soft, nontender, liver spleen not palpable, no masses palpable]. PSYCH: [Alert and oriented x3; mood and affect renata]l. MUSCULOSKELETAL:No Clubbing/cyanosis;muscles-grossly intact CHEST: Dressing over the right breast. RACHEAL drain. INVESTIGATIONS, reviewed in the clinical context: January 10: White count 4.8 hemoglobin 10.1 platelet count 128 potassium 3.3 creatinine 1.10 White count 10.2 hemoglobin 11.5 platelets 151 sodium 140 potassium 3.8 creatinine 1.1 Assessment and plan: -Right mastectomy with axillary node dissection, axillary node mapping. EBL 50 mL -Right breast invasive ductal carcinoma status post new adjuvant node chemotherapy. Follows with Dr. Dinero. -Morbid obesity BMI 42.7 Outpatient weight loss measures -Essential hypertension Prinivil 40 mg daily. Amlodipine 5 mg a day. -Chronic hypokalemia Patient takes potassium supplement at home -Hypothyroid Synthroid 100 g a day -Lower extremity DVT July 2022. Eliquis to be resumed today per surgery Care was discussed the patient. Questions answered. Follow-up with PCP and her oncologist. Thank you Dr. Britton Cuellar Past Medical History Past Medical History: Cancer, Deep Vein Thrombosis (DVT), Hypertension, Osteoarthritis (OA), Thyroid Disorder Additional Past Medical History / Comment(s): POTASSIUM 2.8 AT PCP. ADDITIONAL K+ MED GIVEN. LAST LEVLE 3.4, REDRAW ON 01/04/23. new dx. right breast cancer (LAST DOSE OF CHEM 11/14/22). NO RADIATION. DVT LEFT LEG 07/25/22 History of Any Multi-Drug Resistant Organisms: None Reported Past Surgical History: Breast Surgery, Joint Replacement, Orthopedic Surgery Additional Past Surgical History / Comment(s): Arthroscopy left knee. Left knee replacement. ULTRASOUND. Bx to right breast. SUMAYA CATH Past Anesthesia/Blood Transfusion Reactions: No Reported Reaction, Motion Sickness Additional Past Anesthesia/Blood Transfusion Reaction / Comm: never have had general anesthesia Past Psychological History: No Psychological Hx Reported Smoking Status: Never smoker Past Alcohol Use History: None Reported Past Drug Use History: None Reported - Past Family History Mother Family Medical History: Cancer Additional Family Medical History / Comment(s): breast Father Family Medical History: Cancer Additional Family Medical History / Comment(s): Metastatic Prostate cancer.
--- NOTE | 2023-01-16 09:09 | MM ---
Pathology Description: Location: axilla. Needle Type: 5 cm Kopan Informed consent was obtained and all the patient's questions were answered. The lesion in question was localized sonographically. The standard sterile technique was utilized, as well as appropriate local anesthesia with 1% Lidocaine and bicarbonate. Localization needle followed by placement of a guidewire was performed under sonographic guidance with targeting of 2 previously sampled lymph nodes demarcated by microclip markers. Verification images demonstrate appropriate deployment of the guidewire. The patient tolerated the procedure well and left the department in stable condition. Specimen radiograph demonstrates the guidewires within both lymph nodes targeted within the specimen. IMPRESSION: Successful needle localization and open biopsy right axilla with pathology results pending. Pathology Results: Result: Malignant. A. RIGHT BREAST WITH AXILLARY CONTENTS, MASTECTOMY: Foci of necrotic tumor with fibrosis and histiocytosis, compatible with treated tumor status post neoadjuvant chemotherapy (see note). Sections examined negative for residual viable carcinoma and margins examined benign. Benign nipple and skin with congestion and focal mild chronic inflammation. Fibrocystic change with columnar cell change and usual ductal hyperplasia. At least 2 reactive lymph nodes present, negative for metastatic carcinoma. B. AXILLARY TISSUE, RIGHT BREAST, EXCISION/DISSECTION: Reactive lymph node, negative for metastatic carcinoma. Notes The patient's prior diagnosis of right breast and axillary poorly differentiated ductal carcinoma is noted, and the patient is status post neoadjuvant chemotherapy. See case [id number] for prior biopsy results. Examination reveals areas of treatment effect with hyalinized fibrosis and chronic inflammation with histiocytosis. Areas of treatment effect are associated with favored necrotic tumor, and the sections examined are negative for viable residual carcinoma. Sections from the possible dayron tissue reveal areas of lymphocytic infiltrate along with favored necrotic tumor. It is currently unclear whether these areas represent necrotic former tumor metastases to lymph nodes or separate additional areas of primary necrotic and non-viable tumor. Given the small amount of dayron tissue within blocks A17-A23, these sections may represent necrotic tumor associated with lymph node tissue. No viable residual carcinoma is seen within these sections. The case is best pathologically staged as ypT0, N0, M(N/A), based on the sections examined within the current case. Overall Assessment: Malignant Management: Surgical Consultation of the right breast. Electronically signed and approved by: Alfredo Hawkins M.D. Radiologis
== END 2023-01-10 10:56 | disposition home or self-care (01) ==
LOC: OR 11:46 → 5NMEDONC 19:09 → OR 01-10 10:56
PROVIDERS: ATTEND Surgery
DX: C50.511 Malignant neoplasm of lower-outer quadrant of right female breast (principal); I10 Essential (primary) hypertension; E03.9 Hypothyroidism, unspecified; E66.01 Morbid (severe) obesity due to excess calories; Z92.21 Personal history of antineoplastic chemotherapy; Z79.01 Long term (current) use of anticoagulants; Z85.3 Personal history of malignant neoplasm of breast; Z86.73 Personal history of transient ischemic attack (TIA), and cerebral infarction without residual deficits; Z90.11 Acquired absence of right breast and nipple; Z68.41 Body mass index [BMI] 40.0-44.9, adult; Z79.899 Other long term (current) drug therapy; Z79.890 Hormone replacement therapy
CPT/HCPCS: 19307; 38900; 80048 ×2; 84132; 85025 ×2; 88307; 88309; 76098; 19285; 19286; 38792; C1819; A9520; J2250; J1644 ×3; J1100; J0690; J2405; J2001 ×2; J3010; J2704; Q9968

== ENCOUNTER → 2023-01-17 | Outpatient (CLI) | payer MEDICARE, OTHER ==
--- NOTE | 2023-01-17 08:48 | P.PN ---
Progress Note - Text Progress Note Date: 01/17/23 Tania is a 72-year-old white female status [place] [id number]. Pathology revealed in the right breast foci of necrotic tumor with fibrosis compatible with treated tumor. Sections examined were negative for residual viable cancer and margins examined were benign. At least 2 reactive lymph nodes were present negative for metastatic tumor. Axillary tissue reactive lymph node negative for metastatic cancer. The lymph nodes submitted were markedly enlarged and negative for metastatic tumor. Well postoperatively. She did have an episode where she had diarrhea and vomiting was uncertain if she had the flu. This has resolved. Examination: Lungs: Clear Heart: Regular rate and rhythm Incision: Clean and dry RACHEAL output minimal RACHEAL #2 this will be discussed continued RACHEAL #1 still has over 40 mL for 24 hour period and we will keep that time asked week Plan: Removed RACHEAL #2 Follow-up next week Follow up radiation oncology Follow-up medical oncology CC: Dr. Rogers
[2023-01-17 09:30] VITALS: BP 136/82; PULSE 59; RESP 18; TEMP 98.2
== END ==
LOC: WWCWWP 08:34
PROVIDERS: ATTEND Surgery
DX: Z04.89 Encounter for examination and observation for other specified reasons (principal); Z90.11 Acquired absence of right breast and nipple

== ENCOUNTER → 2023-01-24 | Outpatient (CLI) | payer MEDICARE, OTHER ==
[2023-01-24 08:56] VITALS: BP 173/80; PULSE 72; RESP 18; TEMP 97.9
--- NOTE | 2023-01-24 09:24 | P.PN ---
Progress Note - Text Progress Note Date: 01/24/23 Tania is a 72-year-old white female status [place] [id number]. Pathology revealed in the right breast foci of necrotic tumor with fibrosis compatible with treated tumor. Sections examined were negative for residual viable cancer and margins examined were benign. At least 2 reactive lymph nodes were present negative for metastatic tumor. Axillary tissue reactive lymph node negative for metastatic cancer. The lymph nodes submitted were markedly enlarged and negative for metastatic tumor. She has done well postoperatively. She did have an episode where she had diarrhea and vomiting was uncertain if she had the flu. This has resolved. Examination: Lungs: Clear Heart: Regular rate and rhythm Incision: Clean and dry RACHEAL #2 discontinued RACHEAL #1 still has method and serous output, approximately 30-40 mL per day Lateral aspect of incision is starting to open Plan: Follow-up next week Follow up radiation oncology Follow-up medical oncology Suture reinforcement of lateral aspect of incision Following informed consent the areas prepped using alcohol. One percent lidocaine was used to anesthetize the area of concern. 3-0 nylon running suture was used to reinforce approximately a 1 cm area. CC: Dr. Rogers
== END ==
LOC: WWCWWP 08:17
PROVIDERS: ATTEND Surgery
DX: C50.511 Malignant neoplasm of lower-outer quadrant of right female breast (principal); Z90.11 Acquired absence of right breast and nipple; T81.89XA Other complications of procedures, not elsewhere classified, initial encounter; R59.0 Localized enlarged lymph nodes; R11.10 Vomiting, unspecified; R19.7 Diarrhea, unspecified; Y69 Unspecified misadventure during surgical and medical care

== ENCOUNTER → 2023-01-31 | Outpatient (CLI) | payer MEDICARE, OTHER ==
--- NOTE | 2023-01-31 08:25 | P.PN ---
Progress Note - Text Progress Note Date: 01/31/23 Tania is a 72-year-old white female status [place] [address]. Pathology revealed in the right breast foci of necrotic tumor with fibrosis compatible with treated tumor. Sections examined were negative for residual viable cancer and margins examined were benign. At least 2 reactive lymph nodes were present negative for metastatic tumor. Axillary tissue reactive lymph node negative for metastatic cancer. The lymph nodes submitted were markedly enlarged and negative for metastatic tumor. She has done well postoperatively. She did have an episode where she had diarrhea and vomiting was uncertain if she had the flu. This has resolved. Examination: Lungs: Clear Heart: Regular rate and rhythm Incision: Clean and dry; well-healed RACHEAL #1 low output, less than 10 mL per day Plan: Follow-up 4 monhts Follow up radiation oncology, appointment next week Follow-up medical oncology Suture reinforcement of lateral aspect of incision last week sutures to be removed CC: Dr. Rogers
[2023-01-31 08:57] VITALS: BP 168/84; PULSE 73; RESP 17; TEMP 97.8
== END ==
LOC: WWCWWP 08:00
PROVIDERS: ATTEND Surgery
DX: C50.511 Malignant neoplasm of lower-outer quadrant of right female breast (principal); T81.89XA Other complications of procedures, not elsewhere classified, initial encounter; Z90.11 Acquired absence of right breast and nipple

== ENCOUNTER 2023-02-18 08:00 | Day surgery (SDC) | payer MEDICARE, OTHER ==
[~2023-02-18 08:00] MED LIST changes: +ACETAMINOPHEN TAB 500 MG TAB PO PRN; -DEXAMETHASONE SOD PHOSPHATE 4 MG/ML 1 ML VIAL IV ONE; +LACTATED RINGERS 1,000 ML IV SCH; -MIDAZOLAM 2 MG/2 ML VIAL IV PRN
[2023-02-18] MEDS ORDERED: LACTATED RINGERS 1,000 ML IV ONE (08:33)
[2023-02-18 08:36] VITALS: TEMP 98
[2023-02-18] MEDS ORDERED: BUPIVACAINE (PF) 0.5% 30 ML VIAL SQ ONE ×2 (09:38→10:02)
[2023-02-18] MEDS ORDERED: LIDOCAINE 1% INJ 10MG/ML (20 ML MDV) ONE (09:40)
[2023-02-18] MEDS ORDERED: MIDAZOLAM 2 MG/2 ML VIAL ONE (09:40)
[2023-02-18] MEDS ORDERED: fentaNYL (PF) 50 MCG/ML 2 ML AMP ONE (09:40)
[2023-02-18] MEDS ORDERED: PROPOFOL 10 MG/ML 20 ML VIAL IV ONE (09:40)
[2023-02-18] MEDS ORDERED: LIDOCAINE 2%-EPI 1:100,000 20 ML VIAL SQ ONE ×2 (10:03)
--- NOTE | 2023-02-18 10:18 | P.GSHP ---
History of Present Illness H&P Date: 02/18/23 Chief Complaint: History of breast cancer This a 72-year-old female with previous history of breast cancer. Patient presents today for Port-A-Cath removal. She has a previously placed right subclavian Port-A-Cath. Past Medical History Past Medical History: Cancer, Deep Vein Thrombosis (DVT), Hypertension, Osteoarthritis (OA), Thyroid Disorder Additional Past Medical History / Comment(s): right breast cancer (last dose chemo. 11/14/22), radiation to start mid-end . DVT left leg 07/25/22 History of Any Multi-Drug Resistant Organisms: None Reported Past Surgical History: Breast Surgery, Joint Replacement, Orthopedic Surgery Additional Past Surgical History / Comment(s): Arthroscopy left knee. Left knee replacement. Ultrasound Bx to right breast, Leanne cath insertion 06/11/22, right mastectomy w/ axillary lymph node removal 01/08/23 Past Anesthesia/Blood Transfusion Reactions: No Reported Reaction Additional Past Anesthesia/Blood Transfusion Reaction / Comment(s): never have had general anesthesia Smoking Status: Never smoker - Past Family History Mother Family Medical History: Cancer Additional Family Medical History / Comment(s): breast Father Family Medical History: Cancer, Deep Vein Thrombosis (DVT) Additional Family Medical History / Comment(s): Metastatic Prostate cancer, DVT years before the prostate ca Medications and Allergies Home Medications Medication Instructions Recorded Confirmed Type lisinopriL [Prinivil] 40 mg PO QAM 04/25/22 02/15/23 History Ascorbic Acid [Vitamin C] 1,000 mg PO DAILY 05/16/22 02/15/23 History Calcium Carbonate [Calcium] 600 mg PO DAILY 05/16/22 02/15/23 History Multivitamin [Multivitamins Adult 1 cap PO DAILY 05/16/22 02/15/23 History Gummies] Apixaban [Eliquis] 5 mg PO BID 08/23/22 02/15/23 History amLODIPine BESYLATE 5 mg PO QAM 08/23/22 02/15/23 History Levothyroxine Sodium [Synthroid] 150 mcg PO QAM 01/03/23 02/15/23 History Cholecalciferol [Vitamin D3 (25 50 mcg PO DAILY 02/15/23 02/15/23 History Mcg = 1000 Iu)] Allergies Allergy/AdvReac Type Severity Reaction Status Date / Time No Known Allergies Allergy Verified 02/15/23 08:27 Surgical - Exam Vital Signs Temp Pulse Resp BP Pulse Ox 98 F 76 18 177/79 98 02/18/23 08:33 02/18/23 08:33 02/18/23 08:33 02/18/23 08:33 02/18/23 08:33 - General well developed, well nourished, no distress - Eyes PERRL - ENT normal pinna - Neck no masses, no bruits - Respiratory normal expansion - Cardiovascular Rhythm: regular - Abdomen Abdomen: soft, non tender Assessment and Plan Plan: History of breast cancer. We'll perform Port-A-Cath removal.
--- NOTE | 2023-02-18 10:20 | P.OP ---
Date of Procedure: 02/18/23 Preoperative Diagnosis: History of breast cancer Postoperative Diagnosis: History of breast cancer Procedure(s) Performed: Port-A-Cath removal Anesthesia: MAC Surgeon: Evgeny Robins Estimated Blood Loss (ml): 5 Pathology: none sent Condition: stable Disposition: PACU Description of Procedure: The patient's placed on the operative table in the supine position. She received IV sedation. Her right chest was prepped and draped in sterile fashion. the skin was incised 1% local Xylocaine. Using a 15 blade. Using blunt sharp dissection with cautery the port was dissected free. The port was removed intact with catheter. The skin was closed interrupted 3-0 Monocryl suture. Dermabond was applied. Patient top she will she was sent to recovery in stable condition.
[2023-02-18 10:33] VITALS: BP 113/71; PULSE 61; RESP 16
== END 2023-02-18 10:45 | disposition home or self-care (01) ==
LOC: OR 08:00
PROVIDERS: ATTEND Surgery
DX: Z45.2 Encounter for adjustment and management of vascular access device (principal); I82.409 Acute embolism and thrombosis of unspecified deep veins of unspecified lower extremity; I10 Essential (primary) hypertension; M19.90 Unspecified osteoarthritis, unspecified site; E07.9 Disorder of thyroid, unspecified; Z85.3 Personal history of malignant neoplasm of breast; Z96.652 Presence of left artificial knee joint; Z90.11 Acquired absence of right breast and nipple; Z80.3 Family history of malignant neoplasm of breast; Z79.01 Long term (current) use of anticoagulants; Z79.890 Hormone replacement therapy; Z79.899 Other long term (current) drug therapy
CPT/HCPCS: 36590; J2250; J0690; J2405; J2001; J3010; J2704; J1644; J0665

== ENCOUNTER → 2023-05-24 | Outpatient (CLI) | payer MEDICARE, OTHER ==
--- NOTE | 2023-05-24 12:05 | P.PN ---
Subjective Progress Note Date: 05/24/23 Principal diagnosis: Invasive ductal carcinoma right breast; [id number] Stage IIIC Chief Complaint: Invasive ductal carcinoma right breast; [id number] Stage IIIC 01-08-23 Tania is a 71-year-old white female seen in consultation for Carmen Morataya regarding a biopsy-proven right breast invasive ductal carcinoma. The patient underwent a bilateral mammogram on 1922 which revealed a large focal asymmetry in the right breast inferior laterally with associated skin thickening. No lesions of concern were noted in the left breast. An ultrasound was then performed which revealed edema in the skin of the right breast as well as a solid mass at 7:00 measuring 8.7 cm x 8.4 cm. 2 enlarged axillary masses were seen one measuring 7.7 x 8 cm and the second measuring 4.6 x 3.9 cm. A biopsy of all 3 sites were performed in all 3 sites revealed invasive ductal carcinoma. The core biopsy was performed on . Additionally the lesion was noted to be grade 3 ER. Negative as well as HER-2 negative. The patient noted some redness under her right breast which she though were shingles. She was seen by MD and a mammogram was done which led to this appointment. On presentation the right breast was firm and red. She was treated with amoxicillin for 10 days. This did not result in resolution of this situation. She's never had surgery on her breasts before. She is not complaining of any recent trauma or infection in the breast. She did have some chills but no fever. PET scan 2322 abnormal right axillary adenopathy, no right breast mass, abnormal hypermetabolic uptake in the central uterus which was worrisome for primary endometrial cancer The patient was seen by Dr. Barclay and has had some workup by Dr. Padilla. At this point in time we feel that the breast lesion should be treated prior to the uterine lesion; a biopsy showed mixed endometrial and endocervical polyp and will have D&C to follow treatment of breast cancer She was treated with neoadjuvant chemotherapy under the care of Dr. Douglas Ortez; cycle 1 carboplatin/paclitaxel/pembrolizumab on 06-11-22; 4 cycles of treatment completed on 08-27-22 cycle 1 of AC plus pembrolizumab intiated on 09-12-22 completed on 11-14-22 MRI of the breast done on 12-18-22; this revealed in the right breast and necrotic mass with hemorrhagic components with only peripheral enhancement measuring 9 x 2.6 cm. In the right axilla there was a peripherally enhancing mass with irregular margins and irregular margin enhancement measuring 4.3 x 3.9 cm. There was an additional peripheral enhancement axillary lymph node measuring 1.5 x 1.4 cm. There was a third mass with central necrosis and then peripheral enhancement in the right axilla with a biopsy marker contained within it measuring 4.8 x 2.5 cm. There was scattered smaller subpectoral lymph nodes on the right measuring less than 1 cm. Left breast: No suspicious findings were enhancement in the left breast or axilla The patient has had a good clinical response to the chemotherapy. She completed the chemotherapy on 8222. She did have a DVT in her left lower extremity and and has been treated with Eloquis Note form Dr. Ortez 08-28-22 reviewed 05-24-23 Tania is status post right mastectomy and axillary node resection on 01-08-2023. Pathology revealed in the right breast foci of necrotic tumor with fibrosis compatible with treated tumor. No viable tumor was residual. At least 2 reactive lymph nodes were present which were negative for metastatic disease. The axillary tissue revealed reactive lymph nodes. Postoperatively she has done well. Note medical oncology 04-03-2023 reviewed, at this time she is on Eliquis related to a DVT in the left lower extremity She was seen by radiation oncology in [place] Dr. Rosario and she to completed 30 fractions of treatment on 04-18-2023 Started on Keytruda on 05-23-23 she is following with Dr. Luke, (medical oncology) out of [facility] in [place]; that is once every three weeks and she needs 8 more treatments. She is complainig of a fullness on her left chest last week. She states she woke up with a fullness at the upper inner aspect of the left chest wall, this is not painful, it has not increased in size. She is not complaining of any fever or chills. She has not had any trauma or infection on her chest wall. Caffeine: none nicotine: none chocolate: weekly BCP: none Family History: mother: breast cancer at 46 at 54 from cancer father: prostate cancer paternal aunt: breast cancer Hormonal History: menarche: 14 , age at : 29, breast fed: no menopause: 56 hormones: none Surgical history: left knee replacement Medical History: HTN hypothyroid DVT left leg on eloquis Social History: nicotine: none alcohol: none drugs: none - Constitutional Constitutional: Denies chills, Denies fever - EENT Eyes: denies blurred vision, denies pain Ears: deny: decreased hearing, tinnitus Ears, nose, mouth and throat: Denies headache, Denies sore throat - Breasts Breasts: bilateral: as per HPI - Cardiovascular Cardiovascular: Denies chest pain, Denies shortness of breath - Respiratory Respiratory: Denies cough - Gastrointestinal Gastrointestinal: Denies abdominal pain, Denies diarrhea, Denies nausea, Denies vomiting - Genitourinary (Female) Genitourinary: Denies dysuria, Denies hematuria - Menstruation Menstruation: Reports postmenopausal - Musculoskeletal Comment: arthritis in her hands, knees Musculoskeletal: Denies myalgias - Integumentary Integumentary: Reports as per HPI - Neurological Neurological: Denies numbness, Denies weakness - Psychiatric Psychiatric: Denies anxiety, Denies depression - Endocrine Endocrine: Denies fatigue, Denies weight change - Hematologic/Lymphatic Comment: none - Allergic/Immunologic Allergic/Immunologic: Reports as per HPI Past Medical History Past Medical History: Hypertension History of Any Multi-Drug Resistant Organisms: None Reported Additional Past Surgical History / Comment(s): Left knee replacement Additional Past Anesthesia/Blood Transfusion Reaction / Comment(s): never have had general anesthesia Past Psychological History: No Psychological Hx Reported Smoking Status: Never smoker Past Alcohol Use History: None Reported Past Drug Use History: None Reported Medications and Allergies Home Medications Medication Instructions Recorded Confirmed Type lisinopriL [Prinivil] 20 mg PO DAILY 04/25/22 05/16/22 History Ascorbic Acid [Vitamin C] 1,000 mg PO DAILY 05/16/22 05/16/22 History Calcium Carbonate [Calcium] 600 mg PO DAILY 05/16/22 05/16/22 History Multivitamin [Multivitamins Adult 1 cap PO DAILY 05/16/22 05/16/22 History Gummies] Allergies Allergy/AdvReac Type Severity Reaction Status Date / Time No Known Allergies Allergy Unverified 05/16/22 13:59 Objective - Constitutional General appearance: Present: cooperative - EENT Eyes: Present: EOMI ENT: Present: hearing grossly normal - Neck Neck: Present: normal ROM - Respiratory Respiratory: bilateral: CTA - Cardiovascular Heart sounds: normal: S1, S2 - Gastrointestinal General gastrointestinal: Present: soft - Integumentary Integumentary Comment(s): post radiation erythema right chest wall - Musculoskeletal Musculoskeletal: Present: gait normal - Psychiatric Psychiatric: Present: A&O x's 3, appropriate affect, intact judgment & insight - Additional findings Additional findings: Breast Exam: 3X right shest wall post radiation changes status post right mastectomy than left side Inspection: left grade 3 ptosis Palpation: Right breast: Multiple positional exam of the chest wall does not reveal any evidence of recurrent disease in the incision. In the upper medial aspect of the chest wall there is approximately a 3 x 2 cm area of fullness which may be an abscess starting to form. However at this time it is not warm or tender to palpation. Right axilla: No adenopathy palpable on today's examination Left breast: Multi-positional exam no dominant masses or nodules of concern Left axilla: No adenopathy of concern Assessment and Plan Assessment: Impression: Invasive ductal carcinoma right breast; [id number] Stage IIIC Patient responed well to neoadjuvant chemotherapy Post right mastectomy and axillary node resection on 01-08-2023, at that time there was no viable tumor residual in the specimen all lymph nodes were negative New onset right chest wall mass approximately 3 x 2 cm question abscess Presently on Eliquis related to prior DVT Plan: Right breast mastectomy with right axillary node dissection; right sentinel node injection, right lymph node localization of prior positive lymph node 01-08-23 completed radiation therapy 04-18-23 presently on Keytruda Ultrasound to be performed of the area of protuberance on the right chest wall, would consider biopsy however the patient is presently on Eliquis we will do the ultrasound and then further recommendation to follow If the patient notes that this is increasing in size prior to next week when the ultrasound is performed she will call us sooner I would request that the patient's stop her Eliquis if okay with her medical doctor for 48 hours prior to being seen such that a core biopsy could be done at that time Cc: Dr. Morataya
--- NOTE | 2023-05-24 12:30 | USB ---
Reason for Exam: Clinical finding. Patient History: Breast cancer, right, age 71. Breast cancer, right, age 72. 01/08/2023, Mastectomy on the Right side. 01/08/2023, Malignant US breast localization RT on the right side. 05/08/2022, Malignant US biopsy breast VAD RT on the right side. 05/08/2022, US biopsy breast add'l VAD RT on the Right side. 05/08/2022, US biopsy breast add'l VAD RT on the Right side. Technique: Method: Targeted. Prior Study Comparison: 05/08/2022 Right MG diagnostic mammo RT wo CAD, [facility]. Findings: The area of palpable concern of the right breast was scanned. Complex cystic area with internal debris could reflect an abscess. Overlying skin thickening. Images were reviewed with Dr. Hossein Clement. Attempted aspiration will be performed. Overall Assessment: Suspicious, BI-RAD 4 Management: Aspiration of the right breast. A clinical breast exam by your physician is recommended on an annual basis and results should be correlated with mammographic findings. This exam should not preclude additional follow-up of suspicious palpable abnormalities. Results were given to the patient verbally at the time of exam. Electronically signed and approved by: Alfredo Hawkins M.D. Radiologis
[2023-05-24 12:37] VITALS: BP 193/95; PULSE 73; RESP 17; TEMP 97.8
== END ==
LOC: WWCWWP 10:34
PROVIDERS: ATTEND Surgery
DX: C50.911 Malignant neoplasm of unspecified site of right female breast (principal); E03.9 Hypothyroidism, unspecified; I10 Essential (primary) hypertension; N64.89 Other specified disorders of breast; C54.1 Malignant neoplasm of endometrium; Z86.718 Personal history of other venous thrombosis and embolism; Z90.11 Acquired absence of right breast and nipple; Z92.21 Personal history of antineoplastic chemotherapy; Z92.3 Personal history of irradiation; Z80.3 Family history of malignant neoplasm of breast; Z79.01 Long term (current) use of anticoagulants; Z79.899 Other long term (current) drug therapy; Z79.890 Hormone replacement therapy

== ENCOUNTER → 2023-05-27 | Day surgery (SDC) | payer MEDICARE, OTHER ==
--- NOTE | 2023-05-31 12:08 | USB ---
Prior Study Comparison: 05/08/2022 Right MG diagnostic mammo RT wo CAD, [facility]. Pathology Description: Location: 3 o'clock. The ultrasound guided cyst aspiration procedure was explained to the patient. The risks, benefits, alternatives were discussed. An informed consent was then obtained. A time out was performed at . The patient is status post right mastectomy. The lobulated fluid collection at the site of patient's lump and redness is identified and targeted for biopsy, 3:00 chest wall position measuring 2.5 x 2.3 x 0.7 cm. The patient was placed in supine positioning for imaging and for the procedure. The overlying skin was prepped with betadine and sterilely draped in usual sterile fashion. 2 ml 1% lidocaine was used as anesthetic into the skin followed by a 4 mL epinephrine/lidocaine into the deeper breast tissue up to area of concern in the right 3 o'clock breast. Under ultrasound guidance, a 5 Dominican one-step catheter was advanced into the collection and aspiration yielded 2 mL blood-tinged purulent fluid which is labeled for laboratory analysis. The catheter was removed, hemostasis obtained, and a dressing placed. No postprocedure mammogram as the patient has previous mastectomy. The patient tolerated the procedure well without any immediate complication. The patient was discharged to home in stable condition. IMPRESSION: Successful ultrasound guided aspiration of the small medial right breast abscess in patient with previous mastectomy. Laboratory analysis pending. Pathology Results: Result: Benign. RIGHT CHEST, ASPIRATE: Dense acute inflammatory cells consistent with abscess contents. No cytologically malignant cells identified. Overall Assessment: Benign Management: Diagnostic Breast Ultrasound of the right breast in 6 months. Surgical Consultation of the right breast. Further appropriate management for the abscess. Electronically signed and approved by: Tiffani Stovall M.D. Radiologist
== END ==
LOC: RADUSWWP 12:30
PROVIDERS: ATTEND Surgery
DX: N61.1 Abscess of the breast and nipple (principal); Z90.11 Acquired absence of right breast and nipple
CPT/HCPCS: 76942; 87070; 87075; 87205; 88108; 88305

== ENCOUNTER → 2023-06-07 | Outpatient (CLI) | payer MEDICARE, OTHER ==
--- NOTE | 2023-06-07 09:09 | P.PN ---
Progress Note - Text Progress Note Date: 06/07/23 Tania is status post right mastectomy and axillary node resection on 01-08-2023. Pathology revealed in the right breast foci of necrotic tumor with fibrosis compatible with treated tumor. No viable tumor was residual. At least 2 reactive lymph nodes were present which were negative for metastatic disease. The axillary tissue revealed reactive lymph nodes. Postoperatively she has done well. Note medical oncology 04-03-2023 reviewed, at this time she is on Eliquis related to a DVT in the left lower extremity She was seen by radiation oncology in [place] Dr. Rosario and she to completed 30 fractions of treatment on 04-18-2023 Started on Keytruda on 05-23-23 she is following with Dr. Luke, (medical oncology) out of [facility] in [place]; that is once every three weeks and she needs 8 more treatments. She is complainig of a fullness on her left chest last week. She states she woke up with a fullness at the upper inner aspect of the left chest wall, this is not painful, it has not increased in size. She is not complaining of any fever or chills. She has not had any trauma or infection on her chest wall. ultrasound preformed of the left chest wall showing a complex cyst. Aspiration of the cystic area done on 05-27-23 dense acute inflammatory cells consistent with abscess, many PMNS many gm (+) cocci, no growth after 48 hours anaerobic wound culture: corynebacterium Can: Lungs: Clear Heart: Regular rate and rhythm Area of fullness on the chest wall on the right has completely resolved there is no erythema the patient has had no fever or chills she has no tenderness Impression: Resolved abscess right chest wall Plan: At this time we have discussed antibiotic therapy and secondary to the fact that she is completely asymptomatic with resolution of the area we are going to hold off on that she will call us if there is any change Follow-up months CC: Carmen Rogers
[2023-06-07 09:25] VITALS: BP 131/82; PULSE 73; RESP 16; TEMP 98.3
== END ==
LOC: WWCWWP 08:34
PROVIDERS: ATTEND Surgery
DX: Z90.11 Acquired absence of right breast and nipple (principal); Z86.718 Personal history of other venous thrombosis and embolism

== ENCOUNTER → 2023-09-30 | Outpatient (CLI) | payer MEDICARE, OTHER ==
[2023-09-30 09:06] VITALS: BP 139/79; PULSE 69; RESP 16; TEMP 98.3
--- NOTE | 2023-09-30 09:45 | P.PN ---
Subjective Progress Note Date: 09/30/23 Principal diagnosis: Invasive ductal carcinoma right breast; [id number] Stage IIIC Patient responed well to neoadjuvant chemotherapy 12/20/22 Principal diagnosis: Invasive ductal carcinoma right breast; [id number] Stage IIIC H&P Date: 05/16/22 Chief Complaint: Invasive ductal carcinoma right breast; [id number] Stage IIIC Tania is a 71-year-old white female seen in consultation for Carmen Morataya regarding a biopsy-proven right breast invasive ductal carcinoma. The patient underwent a bilateral mammogram on 1922 which revealed a large focal asymmetry in the right breast inferior laterally with associated skin thickening. No lesions of concern were noted in the left breast. An ultrasound was then performed which revealed edema in the skin of the right breast as well as a solid mass at 7:00 measuring 8.7 cm x 8.4 cm. 2 enlarged axillary masses were seen one measuring 7.7 x 8 cm and the second measuring 4.6 x 3.9 cm. A biopsy of all 3 sites were performed in all 3 sites revealed invasive ductal carcinoma. The core biopsy was performed on 120 . Additionally the lesion was noted to be grade 3 ER. Negative as well as HER-2 negative. The patient noted some redness under her right breast which she though were shingles. She was seen by MD and a mammogram was done which led to this appointment. On presentation the right breast was firm and red. She was treated with amoxicillin for 10 days. This did not result in resolution of this situation. She's never had surgery on her breasts before. She is not complaining of any recent trauma or infection in the breast. She did have some chills but no fever. PET scan 2322 abnormal right axillary adenopathy, no right breast mass, abnormal hypermetabolic uptake in the central uterus which was worrisome for primary endometrial cancer The patient was seen by Dr. Barclay and has had some workup by Dr. Padilla. At this point in time we feel that the breast lesion should be treated prior to the uterine lesion; a biopsy showed mixed endometrial and endocervical polyp and will have D&C to follow treatment of breast cancer She was treated with neoadjuvant chemotherapy under the care of Dr. Douglas Ortez; cycle 1 carboplatin/paclitaxel/pembrolizumab on 06-11-22; 4 cycles of treatment completed on 08-27-22 cycle 1 of AC plus pembrolizumab intiated on 09-12-22 completed on 11-14-22 MRI of the breast done on 12-18-22; this revealed in the right breast and necrotic mass with hemorrhagic components with only peripheral enhancement measuring 9 x 2.6 cm. In the right axilla there was a peripherally enhancing mass with irregular margins and irregular margin enhancement measuring 4.3 x 3.9 cm. There was an additional peripheral enhancement axillary lymph node measuring 1.5 x 1.4 cm. There was a third mass with central necrosis and then peripheral enhancement in the right axilla with a biopsy marker contained within it measuring 4.8 x 2.5 cm. There was scattered smaller subpectoral lymph nodes on the right measuring less than 1 cm. Left breast: No suspicious findings were enhancement in the left breast or axilla The patient has had a good clinical response to the chemotherapy. She completed the chemotherapy on 8222. She did have a DVT in her left lower extremity and and has been treated with Eloquis Note form Dr. Ortez 08-28-22 reviewed 09-30-23 Invasive ductal carcinoma right breast; [id number] Stage IIIC 05-08-22 completed neoadjuvant chemotherapy on 11-14-[address] Ortez, she is receiving kytruda two more to be done in [place]; Dr. Ronn Luke; [phone]; office in [place] also developed a DVT in her left lower extremity and has been treated with eloquis patient underwent a right mastectomy and on 01-08-23. She had foci of necrotic tumor but no viable tumor in the breast. She had at least two nodes removed and these were (-) for cancer. Seen by radiation oncology in [place] Dr. Rosario and completed 30 radiation treatments She is doing well she is not complaining of any new lumps masses or nodules of concern Her last left breast mammogram was about April 2022 Caffeine: none nicotine: none chocolate: weekly BCP: none Family History: mother: breast cancer at 46 at 54 from cancer father: prostate cancer paternal aunt: breast cancer Hormonal History: menarche: 14 , age at : 29, breast fed: no menopause: 56 hormones: none Surgical history: left knee replacement right mastectomy and AND port removed and replaced ont he left side Medical History: HTN hypothyroid DVT left leg on eloquis Social History: nicotine: none alcohol: none drugs: none - Constitutional Constitutional: Denies chills, Denies fever - EENT Eyes: denies blurred vision, denies pain Ears: deny: decreased hearing, tinnitus Ears, nose, mouth and throat: Denies headache, Denies sore throat - Breasts Breasts: bilateral: as per HPI - Cardiovascular Cardiovascular: Denies chest pain, Denies shortness of breath - Respiratory Respiratory: Denies cough - Gastrointestinal Gastrointestinal: Denies abdominal pain, Denies diarrhea, Denies nausea, Denies vomiting - Genitourinary (Female) Genitourinary: Denies dysuria, Denies hematuria - Menstruation Menstruation: Reports postmenopausal - Musculoskeletal Comment: arthritis in her hands, knees Musculoskeletal: Denies myalgias - Integumentary Integumentary: Reports as per HPI - Neurological Neurological: Denies numbness, Denies weakness - Psychiatric Psychiatric: Denies anxiety, Denies depression - Endocrine Endocrine: Denies fatigue, Denies weight change - Hematologic/Lymphatic Comment: none - Allergic/Immunologic Allergic/Immunologic: Reports as per HPI Past Medical History Past Medical History: Hypertension History of Any Multi-Drug Resistant Organisms: None Reported Additional Past Surgical History / Comment(s): Left knee replacement Additional Past Anesthesia/Blood Transfusion Reaction / Comment(s): never have had general anesthesia Past Psychological History: No Psychological Hx Reported Smoking Status: Never smoker Past Alcohol Use History: None Reported Past Drug Use History: None Reported Medications and Allergies Home Medications Medication Instructions Recorded Confirmed Type lisinopriL [Prinivil] 20 mg PO DAILY 04/25/22 05/16/22 History Ascorbic Acid [Vitamin C] 1,000 mg PO DAILY 05/16/22 05/16/22 History Calcium Carbonate [Calcium] 600 mg PO DAILY 05/16/22 05/16/22 History Multivitamin [Multivitamins Adult 1 cap PO DAILY 05/16/22 05/16/22 History Gummies] Allergies Allergy/AdvReac Type Severity Reaction Status Date / Time No Known Allergies Allergy Unverified 05/16/22 13:59 Objective - Vital Signs Vital signs: Vital Signs Temp 98.3 F 09/30/23 09:03 Pulse 69 09/30/23 09:03 Resp 16 09/30/23 09:03 BP 139/79 09/30/23 09:03 Pulse Ox 99 09/30/23 09:03 FiO2 Intake & Output 09/29/23 09/30/23 09/30/23 18:59 06:59 18:59 Weight 127.006 kg - Constitutional General appearance: Present: cooperative - EENT Eyes: Present: EOMI ENT: Present: hearing grossly normal - Neck Neck: Present: normal ROM - Respiratory Respiratory: bilateral: CTA - Cardiovascular Rhythm: regular Heart sounds: normal: S1, S2 - Gastrointestinal General gastrointestinal: Present: soft - Integumentary Integumentary: Present: normal turgor - Musculoskeletal Musculoskeletal: Present: gait normal - Psychiatric Psychiatric: Present: A&O x's 3, appropriate affect, intact judgment & insight - Additional findings Additional findings: Breast Exam: BRA: right mastectomy, left 3X inspection: Well-healed scar right chest wall no evidence of any recurrent disease, left breast grade 3 ptosis Palpation: Right chest wall: No evidence of any recurrent disease Right axilla: No adenopathy of concern Left breast: Multi positional exam no dominant masses or nodules of concern Left axilla: No adenopathy of concern Assessment and Plan Assessment: Impression: Invasive ductal carcinoma right breast; [id number] Stage IIIC 05-08-22; no adjuvant chemotherapy, is presently on Keytruda, she underwent a right mastectomy and axillary node dissection, 8 she completed radiation therapy No evidence of any residual or recurrent disease Patient prior to treatment of the breast did have a abnormality in her uterus which has not yet been addressed Plan: Left breast mammogram/follow-up after for results of this Follow-up here in 4 months Complete Madisyn Continue to follow with radiation oncology Follow-up with [facility] regarding uterine change CC: Carmen Morataya
--- NOTE | 2023-09-30 11:03 | MM ---
Reason for Exam: Additional evaluation requested from prior study. Last mammogram was performed 1 year(s) and 5 month(s) ago. Patient History: Menarche at age 14. First Full-Term at age 29. Postmenopausal. Breast cancer, right, age 71. Breast cancer, right, age 72. 05/27/2023, Benign US breast aspiration single RT on the right side. 01/08/2023, Mastectomy on the Right side. 01/08/2023, Malignant US breast localization RT on the right side. 05/08/2022, Malignant US biopsy breast VAD RT on the right side. 05/08/2022, US biopsy breast add'l VAD RT on the Right side. 05/08/2022, US biopsy breast add'l VAD RT on the Right side. Mother had breast cancer, age 47. Prior Study Comparison: 04/23/2022 Bilateral MG 3D screening mammo w/cad, [facility]. 05/08/2022 Right MG diagnostic mammo RT wo CAD, [facility]. 05/24/2023 Right US breast limited RT, [facility]. Tissue Density: Left: There are scattered areas of fibroglandular density. Findings: Analyzed By CAD. Pattern is stable. No suspicious groups of microcalcifications, spiculated or lobular masses, architectural distortion or other secondary signs of malignancy are mammographically apparent. Overall Assessment: Benign, BI-RAD 2 Management: Diagnostic Mammogram of the left breast in 6 months. A negative mammogram report should not preclude additional follow up of suspicious palpable abnormalities. Patient should continue monthly self breast exam. A clinical breast exam by your physician is recommended on an annual basis and results should be correlated with mammographic findings. Note on Kitty scores and lifetime risk: 1. A Kitty score greater than 3% is considered moderate risk. If this is the case, consider specialist referral to assess eligibility for a risk reducing agent. 2. If overall lifetime risk for the development of breast cancer is 20% or higher, the patient may qualify for future screening with alternating mammogram and breast MRI. Electronically signed and approved by: Angel Butts D.O. Radiologis
== END ==
LOC: WWCWWP 08:45
PROVIDERS: ATTEND Surgery
DX: C50.511 Malignant neoplasm of lower-outer quadrant of right female breast (principal); N63.13 Unspecified lump in the right breast, lower outer quadrant; C54.1 Malignant neoplasm of endometrium; N64.89 Other specified disorders of breast; R22.2 Localized swelling, mass and lump, trunk; Z92.21 Personal history of antineoplastic chemotherapy; Z17.1 Estrogen receptor negative status [ER-]; Z86.718 Personal history of other venous thrombosis and embolism; Z80.3 Family history of malignant neoplasm of breast; Z90.11 Acquired absence of right breast and nipple
CPT/HCPCS: 77065; G0279; 77061

== ENCOUNTER → 2023-09-30 | Outpatient (CLI) | payer MEDICARE, OTHER | END | disposition home or self-care (01) | LOC: RADMAMWWP 09:55 | PROVIDERS: ATTEND Surgery | DX: Z53.9 Procedure and treatment not carried out, unspecified reason (principal) ==

== ENCOUNTER → 2024-01-22 | Outpatient (CLI) | payer MEDICARE, OTHER ==
[2024-01-22 09:18] VITALS: BP 150/84; PULSE 65; RESP 16; TEMP 98.1
--- NOTE | 2024-01-22 09:58 | P.PN ---
Subjective Progress Note Date: 01/22/24 Principal diagnosis: Invasive ductal carcinoma right breast; [id number] Stage IIIC, 202209/30/23 Principal diagnosis: Invasive ductal carcinoma right breast; [id number] Stage IIIC Patient responed well to neoadjuvant chemotherapy 01-22-24 Tania is a 73-year-old white female seen in consultation for Carmen Morataya regarding a biopsy-proven right breast invasive ductal carcinoma. The patient underwent a bilateral mammogram on 1922 which revealed a large focal asymmetry in the right breast inferior laterally with associated skin thickening. No lesions of concern were noted in the left breast. An ultrasound was then performed which revealed edema in the skin of the right breast as well as a solid mass at 7:00 measuring 8.7 cm x 8.4 cm. 2 enlarged axillary masses were seen one measuring 7.7 x 8 cm and the second measuring 4.6 x 3.9 cm. A biopsy of all 3 sites were performed in all 3 sites revealed invasive ductal carcinoma. The core biopsy was performed on . Additionally the lesion was noted to be grade 3 ER. Negative as well as HER-2 negative. The patient noted some redness under her right breast which she though were shingles. She was seen by MD and a mammogram was done which led to this appointment. On presentation the right breast was firm and red. She was treated with amoxicillin for 10 days. This did not result in resolution of this situation. She's never had surgery on her breasts before. She is not complaining of any recent trauma or infection in the breast. She did have some chills but no fever. PET scan 2322 abnormal right axillary adenopathy, no right breast mass, abnormal hypermetabolic uptake in the central uterus which was worrisome for primary endometrial cancer The patient was seen by Dr. Barclay and has had some workup by Dr. Padilla. At this point in time we feel that the breast lesion should be treated prior to the uterine lesion; a biopsy showed mixed endometrial and endocervical polyp and will have D&C to follow treatment of breast cancer She was treated with neoadjuvant chemotherapy under the care of Dr. Douglas Ortez; cycle 1 carboplatin/paclitaxel/pembrolizumab on 06-11-22; 4 cycles of treatment completed on 08-27-22 cycle 1 of AC plus pembrolizumab intiated on 09-12-22 completed on 11-14-22 MRI of the breast done on 12-18-22; this revealed in the right breast and necrotic mass with hemorrhagic components with only peripheral enhancement measuring 9 x 2.6 cm. In the right axilla there was a peripherally enhancing mass with irregular margins and irregular margin enhancement measuring 4.3 x 3.9 cm. There was an additional peripheral enhancement axillary lymph node measuring 1.5 x 1.4 cm. There was a third mass with central necrosis and then peripheral enhancement in the right axilla with a biopsy marker contained within it measuri ng 4.8 x 2.5 cm. There was scattered smaller subpectoral lymph nodes on the right measuring less than 1 cm. Left breast: No suspicious findings were enhancement in the left breast or axilla The patient has had a good clinical response to the chemotherapy. She completed the chemotherapy on 8222. She did have a D[place] in [place] [address] and has been treated with Eloquis Invasive ductal carcinoma right breast; [id number] Stage IIIC 05-08-22 completed neoadjuvant chemotherapy on 11-14-[address] Ortez, she received kytruda be done in [place]; This was completed November 12, 2023. Dr. Ronn Luke; [phone]; office in [place] also She will follow up with them on January 23, 2024 (request notes) developed a DVT in her left lower extremity and was been treated with eloquis patient underwent a right mastectomy on 01-08-23. She had foci of necrotic tumor but no viable tumor in the breast. She had at least two nodes removed and these were (-) for cancer. Seen by radiation oncology in [place] Dr. Rosario and completed 30 radiation treatments She is doing well she is not complaining of any new lumps masses or nodules of concern Her last left breast mammogram was 09-30-23 BIRAD 2, personally reviewed and interpreted note medical oncology Trvais Ortez reviewed 10-01-23 continue on eliquis She is not complaining of any lumps masses or nodules of concern in the left breast or on the right chest wall. She has not had her uterus further addressed, her became ill and in November of 2023. Caffeine: none nicotine: none chocolate: weekly BCP: none Family History: mother: breast cancer at 46 at 54 from cancer father: prostate cancer paternal aunt: breast cancer Hormonal History: menarche: 14 , age at : 29, breast fed: no menopause: 56 hormones: none Surgical history: left knee replacement right mastectomy and AND port removed and replaced ont he left side Medical History: HTN hypothyroid DVT left leg on eloquis Social History: nicotine: none alcohol: none drugs: none - Constitutional Constitutional: Denies chills, Denies fever - EENT Eyes: denies blurred vision, denies pain Ears: deny: decreased hearing, tinnitus Ears, nose, mouth and throat: Denies headache, Denies sore throat - Breasts Breasts: bilateral: as per HPI - Cardiovascular Cardiovascular: Denies chest pain, Denies shortness of breath - Respiratory Respiratory: Denies cough - Gastrointestinal Gastrointestinal: Denies abdominal pain, Denies diarrhea, Denies nausea, Denies vomiting - Genitourinary (Female) Genitourinary: Denies dysuria, Denies hematuria - Menstruation Menstruation: Reports postmenopausal - Musculoskeletal Comment: arthritis in her hands, knees Musculoskeletal: Denies myalgias - Integumentary Integumentary: Reports as per HPI - Neurological Neurological: Denies numbness, Denies weakness - Psychiatric Psychiatric: Denies anxiety, Denies depression - Endocrine Endocrine: Denies fatigue, Denies weight change - Hematologic/Lymphatic Comment: none - Allergic/Immunologic Allergic/Immunologic: Reports as per HPI Past Medical History Past Medical History: Hypertension History of Any Multi-Drug Resistant Organisms: None Reported Additional Past Surgical History / Comment(s): Left knee replacement Additional Past Anesthesia/Blood Transfusion Reaction / Comment(s): never have had general anesthesia Past Psychological History: No Psychological Hx Reported Smoking Status: Never smoker Past Alcohol Use History: None Reported Past Drug Use History: None Reported Medications and Allergies Home Medications Medication Instructions Recorded Confirmed Type lisinopriL [Prinivil] 20 mg PO DAILY 04/25/22 05/16/22 History Ascorbic Acid [Vitamin C] 1,000 mg PO DAILY 05/16/22 05/16/22 History Calcium Carbonate [Calcium] 600 mg PO DAILY 05/16/22 05/16/22 History Multivitamin [Multivitamins Adult 1 cap PO DAILY 05/16/22 05/16/22 History Gummies] Allergies Allergy/AdvReac Type Severity Reaction Status Date / Time No Known Allergies Allergy Unverified 05/16/22 13:59 Objective - Vital Signs Vital signs: Vital Signs Temp 98.1 F 01/22/24 08:50 Pulse 65 01/22/24 08:50 Resp 16 01/22/24 08:50 BP 150/84 01/22/24 08:50 Pulse Ox 98 01/22/24 08:50 FiO2 Intake & Output 01/21/24 01/22/24 01/22/24 18:59 06:59 18:59 Weight 122.47 kg - Constitutional General appearance: Present: cooperative - EENT Eyes: Present: EOMI ENT: Present: hearing grossly normal - Neck Neck: Present: normal ROM - Respiratory Respiratory: bilateral: CTA - Cardiovascular Rhythm: regular Heart sounds: normal: S1, S2 - Gastrointestinal General gastrointestinal: Present: soft - Integumentary Integumentary: Present: normal turgor - Musculoskeletal Musculoskeletal: Present: gait normal - Psychiatric Psychiatric: Present: A&O x's 3, appropriate affect, intact judgment & insight - Additional findings Additional findings: Breast Exam: BRA: right mastectomy, left 3X inspection: Well-healed scar right chest wall no evidence of any recurrent disease, left breast grade 3 ptosis Palpation: Right chest wall: No evidence of any recurrent disease Right axilla: No adenopathy of concern Left breast: Multi positional exam no dominant masses or nodules of concern Left axilla: No adenopathy of concern fungal infection under left breast and left axillla Assessment and Plan Assessment: Impression: Invasive ductal carcinoma right breast; [id number] Stage IIIC 05-08-22; aida [facility] she underwent a right mastectomy and axillary node dissection, 01-08-23 completed radiation therapy No evidence of any residual or recurrent disease fungal infection under left breast and axilla left Patient prior to treatment of the breast did have a abnormality in her uterus which has not yet been addressed Plan: appointment with gynocologist here Left breast mammogram September 2024 with follow up Follow-up here in 6 months continue to follow with medical oncology Continue to follow with radiation oncology Follow-up with [facility] regarding uterine change, does not want to go to [place] but may not have any other options in town CC: Carmen Morataya
== END ==
LOC: WWCWWP 08:30
PROVIDERS: ATTEND Surgery

== ENCOUNTER → 2024-11-10 | Outpatient (CLI) | payer MEDICARE, OTHER ==
--- NOTE | 2024-11-10 11:34 | MM ---
Reason for Exam: Hx of breast cancer, mastectomy. Last mammogram was performed 1 year(s) and 1 month(s) ago. Patient History: Menarche at age 14. First Full-Term at age 29. Postmenopausal. Breast cancer, right, age 71. Breast cancer, right, age 72. Previous chest radiation therapy at age 72. Previous chemotherapy at age 72. 05/27/2023, Benign US breast aspiration single RT on the right side. 01/08/2023, Mastectomy on the Right side. 01/08/2023, Malignant US breast localization RT on the right side. 05/08/2022, Malignant US biopsy breast VAD RT on the right side. 05/08/2022, US biopsy breast add'l VAD RT on the Right side. 05/08/2022, US biopsy breast add'l VAD RT on the Right side. Mother had breast cancer, age 47. Prior Study Comparison: 04/23/2022 Bilateral MG 3D screening mammo w/cad, [facility]. 05/08/2022 Right MG diagnostic mammo RT wo CAD, [facility]. 09/30/2023 Left MG 3D diag mammo w/cad , [facility]. Tissue Density: Left: There are scattered areas of fibroglandular density. Findings: Analyzed By CAD. Chest wall injection port noted projecting over the talus. No significant change from prior exams. Overall Assessment: Benign, BI-RAD 2 Management: Screening Mammogram of the left breast in 1 year. Results were given to the patient verbally at the time of exam. Patient should continue monthly self-breast exams. A clinical breast exam by your physician is recommended on an annual basis. This exam should not preclude additional follow-up of suspicious palpable abnormalities. [facility], , 11/10/2024 11:31 AM. Electronically signed and approved by: Tiffani Stovall M.D. Radiologist
== END | disposition home or self-care (01) ==
LOC: RADMAMWWP 10:38
PROVIDERS: ATTEND Surgery
DX: R92.322 Mammographic fibroglandular density, left breast (principal); Z85.3 Personal history of malignant neoplasm of breast; Z78.0 Asymptomatic menopausal state; Z80.3 Family history of malignant neoplasm of breast; Z90.11 Acquired absence of right breast and nipple
CPT/HCPCS: 77065; G0279; 77061